=== PATIENT | male | born 1965 | race Caucasian/White ===

== ENCOUNTER 2017-02-17 08:35 | Observation (INO) | payer OTHER ==
[2017-02-17] MEDS ORDERED: Sodium Chloride 0.9% 10 ML Syringe FLUSH PRN (08:54)
[2017-02-17] MEDS ORDERED: Sodium Chloride 0.9% 1,000 ML IV STA (08:54)
[2017-02-17] MEDS ORDERED: Ondansetron 4 MG/2 ML SDV IVPUSH ONE (08:54)
[2017-02-17] MEDS ORDERED: Iopamidol 612 MG/ML 150 ML Bottle IVPUSH ONE (09:09)
[2017-02-17] MEDS ORDERED: Diatrizoate Meglumine/Diatrizoate Sodium 37% 120 ML Bottle PO ONE (09:09)
[2017-02-17] MEDS: Sodium Chloride 0.9% 10 ML Syringe FLUSH PRN ×2 (09:28→10:16)
[2017-02-17] MEDS ORDERED: HYDROmorphone 1 MG/ML Syringe IVPUSH ONE (09:29)
[2017-02-17] MEDS ORDERED: HYDROmorphone 0.5 MG/0.5 ML Syringe IVPUSH ONE (10:39)
--- NOTE | 2017-02-17 10:41 | CT ---
CT abdomen and pelvis Technique: Multiple axial sections were obtained from above the dome of the diaphragm inferiorly through the pubic symphysis. Intravenous and oral contrast was utilized. Findings: Appendix is enlarged. Inflammatory change is seen around the tip of the appendix. Findings are felt compatible with appendicitis. Mild dependent atelectasis is incidentally noted posteriorly within both lung bases. Liver shows no focal parenchymal abnormality. Gallbladder shows no calcified gallstones. Spleen appears within normal limits. Adrenal glands show no nodule. Kidneys show symmetric contrast enhancement without hydronephrosis or mass. Pancreas appears within normal limits. Aorta shows no aneurysmal dilatation. Mild atherosclerotic change is noted within the aorta and iliac vessels. No pelvic mass or adenopathy is seen. Small fat-containing left inguinal hernia is identified. No bowel dilatation is seen. Bone window settings were reviewed which shows minimal degenerative change within the spine. Small fat-containing umbilical hernia is seen. Impression: 1. Findings compatible with appendicitis. 2. Other incidental findings as described above. Diagnostic code #5
[2017-02-17] MEDS ORDERED: cefOXitin 2 GM in Sodium Chloride 0.9% 100 ML IV ONE (10:50)
[2017-02-17] MEDS ORDERED: Lactated Ringers 1,000 ML IV SCH (11:00)
[2017-02-17] MEDS ORDERED: cefOXitin 2 GM in Premix Bag 1 BAG IV ONE (11:15)
[2017-02-17] MEDS ORDERED: Lidocaine 1% with EPINEPHrine 1:100,000 20 ML MDV ONE (11:21)
[2017-02-17] MEDS ORDERED: Bupivacaine 0.5%/EPINEPHrine 1:200,000 50 ML MDV ONE (11:21)
--- NOTE | 2017-02-17 11:25 | PCM.HP ---
H&P History of Present Illness - General Date of Service: 02/17/17 Source of Information: Patient History Limitations: Reports: No Limitations - History of Present Illness Initial Comments - Free Text/Narative: 51-year-old male complained of constipation and bloating 7 days ago. This was followed by periumbilical pain beginning Monday. The pain was worse with activity and migrated to his right lower quadrant over the next 48 hours. It failed to improve with laxatives. He had some mild fevers and chills as well. Because of the persistent discomfort he presented to emergency room. A CT scan of his abdomen was performed and had imaging features consistent with appendicitis. I was asked to see him for consultation. Lower Abdominal Pain Score (Numeric/FACES): 2 - Related Data Allergies/Adverse Reactions: Allergies Allergy/AdvReac Type Severity Reaction Status Date / Time No Known Allergies Allergy Verified 02/17/17 08:43 Home Medications: Home Meds Indomethacin 50 mg PO Q8HR PRN #30 capsule 12/01/14 [Rx] Lisinopril 20 mg PO DAILY 12/01/14 [History] amLODIPine Besylate [Amlodipine Besylate] 10 mg PO DAILY 12/01/14 [History] oxyCODONE HCl/Acetaminophen [Percocet 5-325 mg Tablet] 1 - 2 tab PO Q6H PRN #20 tablet 12/01/14 [Rx] Past Medical History Cardiovascular History: Reports: Hypertension Musculoskeletal History: Reports: Back Pain, Chronic Social & Family History - Tobacco Use Smoking Status *Q: Current Every Day Smoker Years of Tobacco use: 20 Packs/Tins Daily: 0.5 - Alcohol Use Days Per Week of Alcohol Use: 2 Number of Drinks Per Day: 3 Total Drinks Per Week: 6 - Recreational Drug Use Recreational Drug Use: No H&P Review of Systems - Review of Systems: Review Of Systems: See Below Gastrointestinal: Reports: Abdominal Pain Exam - Exam Exam: See Below - Vital Signs Vital Signs: Last Vital Signs Temp 36.6 C 02/17/17 08:44 Pulse 92 02/17/17 08:44 Resp 18 02/17/17 08:44 BP 132/89 02/17/17 08:44 Pulse Ox 96 02/17/17 08:44 Weight: 112.491 kg - Exam General: Alert, Oriented, 4 HEENT: Conjunctiva Clear, EOMI, Hearing Intact Neck: Supple, Trachea Midline Lungs: Clear to Auscultation, Normal Respiratory Effort Cardiovascular: Regular Rate, Regular Rhythm, Normal S1, Normal S2 Abdomen: Normal Bowel Sounds, Distention, Hernia (Protuberant umbilical reducible 2 cm defect nontender), McBurney's Sign (Male) Exam: Deferred Rectal (Males) Exam: Deferred Back Exam: Full Range of Motion Extremities: Normal Inspection Skin: Warm, Dry, Intact Psychiatric: Alert, Normal Affect - Patient Data Lab Results Last 24 hrs: Laboratory Results - last 24 hr 02/17/17 02/17/17 02/17/17 Range/Units 09:10 09:10 10:35 WBC 13.71 H (4.23-9.07) K/mm3 RBC 5.09 (4.63-6.08) M/mm3 Hgb 15.3 (13.7-17.5) gm/L Hct 43.3 (40.1-51.0) % MCV 85.1 (79.0-92.2) fl MCH 30.1 (25.7-32.2) pg MCHC 35.3 (32.2-35.5) g/dl RDW Std Deviation 38.1 (35.1-43.9) fL Plt Count 240 (163-337) K/mm3 MPV 9.3 L (9.4-12.3) fl Neut % (Auto) 71.6 H (34.0-67.9) % Lymph % (Auto) 16.5 L (21.8-53.1) % Sunflower % (Auto) 10.4 (5.3-12.2) % Eos % (Auto) 1.2 (0.8-7.0) Baso % (Auto) 0.2 (0.1-1.2) % Neut # (Auto) 9.82 H (1.78-5.38) K/mm3 Lymph # (Auto) 2.26 (1.32-3.57) K/mm3 Sunflower # (Auto) 1.42 H (0.30-0.82) K/mm3 Eos # (Auto) 0.17 (0.04-0.54) K/mm3 Baso # (Auto) 0.03 (0.01-0.08) K/mm3 Sodium 134 L (136-145) mEq/L Potassium 3.7 (3.5-5.1) mEq/L Chloride 99 (98-107) mEq/L Carbon Dioxide 27 (21-32) mEq/L Anion Gap 11.7 (5-15) BUN 21 H (7-18) mg/dL Creatinine 1.1 (0.7-1.3) mg/dL Est Cr Clr Drug Dosing 90.30 mL/min Estimated GFR (MDRD) > 60 (>60) mL/min BUN/Creatinine Ratio 19.1 H (14-18) Glucose 116 H (74-106) mg/dL Calcium 8.7 (8.5-10.1) mg/dL Total Bilirubin 1.5 H (0.2-1.0) mg/dL AST 20 (15-37) U/L ALT 28 (16-63) U/L Alkaline Phosphatase 79 (46-116) U/L Total Protein 7.4 (6.4-8.2) g/dl Albumin 3.6 (3.4-5.0) g/dl Globulin 3.8 gm/dL Albumin/Globulin Ratio 1.0 (1-2) Lipase 98 (73-393) U/L Urine Color Yellow (Yellow) Urine Appearance Clear (Clear) Urine pH 6.5 (5.0-8.0) Ur Specific [place] 1.010 (1.005-1.030) Urine Protein Negative (Negative) Urine Glucose (UA) Negative (Negative) Urine Ketones Negative (Negative) Urine Occult Blood Negative (Negative) Urine Nitrite Negative (Negative) Urine Bilirubin Negative (Negative) Urine Urobilinogen 1.0 (0.2-1.0) Ur Leukocyte Esterase Negative (Negative) Urine RBC Not seen (0-5) /hpf Urine WBC Not seen (0-5) /hpf Ur Epithelial Cells Not seen (0-5) /hpf Urine Bacteria Not seen (FEW) /hpf Urine Mucus Not seen (FEW) /hpf Result Diagrams: 02/17/17 09:10 02/17/17 09:10 *Q Meaningful Use (ADM) - VTE *Q VTE Criteria *Q: - Stroke *Q Stroke Criteria *Q: - AMI *Q AMI Criteria *Q: Problem List Initiated/Reviewed/Updated: Yes Orders Last 24hrs: Active Orders 24 hr Category Date Time Status Communication Order [RC] ROUTINE Care 02/17/17 11:16 Ordered Patient to Empty Bladder [RC] ASDIRECTED Care 02/17/17 11:16 Ordered Peripheral IV Care [RC] . DIRECTED Care 02/17/17 08:55 Active Verify Patient Consent Obtain [RC] ASDIRECTED Care 02/17/17 11:16 Ordered Nothing Per Oral Diet [DIET] Diet 02/17/17 Breakfast Ordered Lactated Ringers [Ringers, Lactated] 1,000 ml Med 02/17/17 11:00 Active IV ASDIRECTED Sodium Chloride 0.9% [Saline Flush] Med 02/17/17 08:54 Active 10 ml FLUSH ASDIRECTED PRN Sodium Chloride 0.9% [Saline Flush] Med 02/17/17 09:09 Active 10 ml FLUSH ONETIME PRN cefOXitin [Mefoxin in Dextrose,Iso-Osm 2 GM/50 ML] 2 gm Med 02/17/17 11:15 Active Premix Bag 1 bag IV ONETIME ED Antiemetic Medication Reflex [OM.PC] Stat Oth 02/17/17 08:55 Ordered Peripheral IV Insertion Adult [OM.PC] Stat Oth 02/17/17 08:54 Ordered Resuscitation Status Routine Resus Stat 02/17/17 11:16 Ordered Medication Orders Lactated Ringer's (Ringers, Lactated) 1,000 mls @ 100 mls/hr IV ASDIRECTED CIARA Last Admin: 02/17/17 10:59 Dose: 100 mls/hr Cefoxitin Sodium 2 gm/ Premix 50 mls @ 100 mls/hr IV ONETIME ONE Stop: 02/17/17 11:44 Last Admin: 02/17/17 11:17 Dose: 100 mls/hr Sodium Chloride (Saline Flush) 10 ml FLUSH ASDIRECTED PRN PRN Reason: Keep Vein Open Sodium Chloride (Saline Flush) 10 ml FLUSH ONETIME PRN PRN Reason: IV FLUSH Last Admin: 02/17/17 10:16 Dose: 10 ml Admin: 02/17/17 09:28 Dose: 10 ml Assessment/Plan Comment:: imp: Delayed presentation of appendicitis. On the other hand this may be a cecal pathologic problem, etc. He has an umbilical hernia. With the pain spreading into the hypogastrium this may represent peritonitis and could require inpatient hospitalization with IV antibiotics. He has an increased risk for perioperative complications because of the late presentation. Nevertheless surgery is indicated. plan: Laparoscopic possible open appendectomy with concomitant umbilical herniorrhaphy. The benefits and risks as well as the alternatives were explained to the patient. He wants to proceed as soon as possible.
--- NOTE | 2017-02-17 11:34 | EDM.PDOC ---
ED HPI GENERAL MEDICAL PROBLEM - General Chief Complaint: Abdominal Pain Stated Complaint: CONSTIPATION Time Seen by Provider: 02/17/17 08:50 Source of Information: Reports: Patient History Limitations: Reports: No Limitations - History of Present Illness INITIAL COMMENTS - FREE TEXT/NARRATIVE: The patient presents with lower abdominal pain for about a week. The pain has come and gone but it is more constant now. He has not had a bowel movement for about 1 week. He has nausea and he has no appetite. He has chills and he checked his temp at home and it was 101. He has no dysuria. He has no chest pain or shortness of breath. He still has his appendix and gallbladder. Onset: Gradual Duration: Week(s): (1) Location: Reports: Abdomen Quality: Reports: Sharp Severity: Moderate Improves with: Reports: None Worsens with: Reports: None Associated Symptoms: Reports: Fever/Chills, Nausea/Vomiting. Denies: Chest Pain , Cough, Headaches, Shortness of Breath Lower Abdominal Pain Score (Numeric/FACES): 2 - Related Data Allergies Allergy/AdvReac Type Severity Reaction Status Date / Time No Known Allergies Allergy Verified 02/17/17 08:43 Home Meds: Home Meds Lisinopril 20 mg PO DAILY 12/01/14 [History] amLODIPine Besylate [Amlodipine Besylate] 10 mg PO DAILY 12/01/14 [History] Hydrochlorothiazide [Hydrochlorothiazide] 50 mg PO DAILY 02/17/17 [History] Hydrocodone/Acetaminophen [Hydrocodon-Acetaminophn 10-325] 1 tab PO Q4H PRN [History] Past Medical History Cardiovascular History: Reports: Hypertension Musculoskeletal History: Reports: Back Pain, Chronic Social & Family History - Tobacco Use Smoking Status *Q: Current Every Day Smoker Years of Tobacco use: 20 Packs/Tins Daily: 0.5 - Alcohol Use Days Per Week of Alcohol Use: 2 Number of Drinks Per Day: 3 Total Drinks Per Week: 6 - Recreational Drug Use Recreational Drug Use: No ED ROS GENERAL - Review of Systems Review Of Systems: See Below Constitutional: Reports: Fever, Chills HEENT: Reports: No Symptoms Respiratory: Reports: No Symptoms Cardiovascular: Reports: No Symptoms Endocrine: Reports: No Symptoms GI/Abdominal: Reports: Abdominal Pain, Nausea. Denies: Vomiting : Reports: No Symptoms Musculoskeletal: Reports: No Symptoms Skin: Reports: No Symptoms ED EXAM, GI/ABD - Physical Exam Exam: See Below Exam Limited By: No Limitations General Appearance: Alert, No Apparent Distress Ears: Normal External Exam Nose: Normal Inspection Head: Atraumatic, Normocephalic Neck: Normal Inspection Respiratory/Chest: No Respiratory Distress, Lungs Clear, Normal Breath Sounds Cardiovascular: Regular Rate, Rhythm, No Edema, No Murmur GI/Abdominal: Soft, No Organomegaly, No Mass, Tenderness (Moderate to the mid and right lower quadrant) Course - Vital Signs Last Recorded V/S: Last Vital Signs Temp 97.9 F 02/17/17 08:44 Pulse 92 02/17/17 08:44 Resp 18 02/17/17 08:44 BP 132/89 02/17/17 08:44 Pulse Ox 96 02/17/17 08:44 - Orders/Labs/Meds Orders: Active Orders 24 hr Category Date Time Status Communication Order [RC] ROUTINE Care 02/17/17 11:16 Active Patient to Empty Bladder [RC] ASDIRECTED Care 02/17/17 11:16 Active Peripheral IV Care [RC] . DIRECTED Care 02/17/17 08:55 Active Verify Patient Consent Obtain [RC] ASDIRECTED Care 02/17/17 11:16 Active Nothing Per Oral Diet [DIET] Diet 02/17/17 Breakfast Active Lactated Ringers [Ringers, Lactated] 1,000 ml Med 02/17/17 11:00 Active IV ASDIRECTED Sodium Chloride 0.9% [Saline Flush] Med 02/17/17 08:54 Active 10 ml FLUSH ASDIRECTED PRN Sodium Chloride 0.9% [Saline Flush] Med 02/17/17 09:09 Active 10 ml FLUSH ONETIME PRN cefOXitin [Mefoxin in Dextrose,Iso-Osm 2 GM/50 ML] 2 gm Med 02/17/17 11:15 Active Premix Bag 1 bag IV ONETIME ED Antiemetic Medication Reflex [OM.PC] Stat Oth 02/17/17 08:55 Ordered Peripheral IV Insertion Adult [OM.PC] Stat Oth 02/17/17 08:54 Ordered Resuscitation Status Routine Resus Stat 02/17/17 11:16 Ordered Medication Orders Lactated Ringer's (Ringers, Lactated) 1,000 mls @ 100 mls/hr IV ASDIRECTED CIARA Last Admin: 02/17/17 10:59 Dose: 100 mls/hr Cefoxitin Sodium 2 gm/ Premix 50 mls @ 100 mls/hr IV ONETIME ONE Stop: 02/17/17 11:44 Last Admin: 02/17/17 11:17 Dose: 100 mls/hr Sodium Chloride (Saline Flush) 10 ml FLUSH ASDIRECTED PRN PRN Reason: Keep Vein Open Sodium Chloride (Saline Flush) 10 ml FLUSH ONETIME PRN PRN Reason: IV FLUSH Last Admin: 02/17/17 10:16 Dose: 10 ml Admin: 02/17/17 09:28 Dose: 10 ml Labs: Laboratory Tests 02/17/17 02/17/17 02/17/17 Range/Units 09:10 09:10 10:35 WBC 13.71 H (4.23-9.07) K/mm3 RBC 5.09 (4.63-6.08) M/mm3 Hgb 15.3 (13.7-17.5) gm/L Hct 43.3 (40.1-51.0) % MCV 85.1 (79.0-92.2) fl MCH 30.1 (25.7-32.2) pg MCHC 35.3 (32.2-35.5) g/dl RDW Std Deviation 38.1 (35.1-43.9) fL Plt Count 240 (163-337) K/mm3 MPV 9.3 L (9.4-12.3) fl Neut % (Auto) 71.6 H (34.0-67.9) % Lymph % (Auto) 16.5 L (21.8-53.1) % [place] % (Auto) 10.4 (5.3-12.2) % Eos % (Auto) 1.2 (0.8-7.0) Baso % (Auto) 0.2 (0.1-1.2) % Neut # (Auto) 9.82 H (1.78-5.38) K/mm3 Lymph # (Auto) 2.26 (1.32-3.57) K/mm3 [place] # (Auto) 1.42 H (0.30-0.82) K/mm3 Eos # (Auto) 0.17 (0.04-0.54) K/mm3 Baso # (Auto) 0.03 (0.01-0.08) K/mm3 Sodium 134 L (136-145) mEq/L Potassium 3.7 (3.5-5.1) mEq/L Chloride 99 (98-107) mEq/L Carbon Dioxide 27 (21-32) mEq/L Anion Gap 11.7 (5-15) BUN 21 H (7-18) mg/dL Creatinine 1.1 (0.7-1.3) mg/dL Est Cr Clr Drug Dosing 90.30 mL/min Estimated GFR (MDRD) > 60 (>60) mL/min BUN/Creatinine Ratio 19.1 H (14-18) Glucose 116 H (74-106) mg/dL Calcium 8.7 (8.5-10.1) mg/dL Total Bilirubin 1.5 H (0.2-1.0) mg/dL AST 20 (15-37) U/L ALT 28 (16-63) U/L Alkaline Phosphatase 79 (46-116) U/L Total Protein 7.4 (6.4-8.2) g/dl Albumin 3.6 (3.4-5.0) g/dl Globulin 3.8 gm/dL Albumin/Globulin Ratio 1.0 (1-2) Lipase 98 (73-393) U/L Urine Color Yellow (Yellow) Urine Appearance Clear (Clear) Urine pH 6.5 (5.0-8.0) Ur Specific [place] 1.010 (1.005-1.030) Urine Protein Negative (Negative) Urine Glucose (UA) Negative (Negative) Urine Ketones Negative (Negative) Urine Occult Blood Negative (Negative) Urine Nitrite Negative (Negative) Urine Bilirubin Negative (Negative) Urine Urobilinogen 1.0 (0.2-1.0) Ur Leukocyte Esterase Negative (Negative) Urine RBC Not seen (0-5) /hpf Urine WBC Not seen (0-5) /hpf Ur Epithelial Cells Not seen (0-5) /hpf Urine Bacteria Not seen (FEW) /hpf Urine Mucus Not seen (FEW) /hpf Meds: Medications Generic Name Dose Route Start Last Admin Trade Name Freq PRN Reason Stop Dose Admin Lactated Ringer's 1,000 mls @ 100 mls/hr 02/17/17 11:00 02/17/17 10:59 Ringers, Lactated IV 100 mls/hr ASDIRECTED CIARA Administration Cefoxitin Sodium 2 gm/ Premix 50 mls @ 100 mls/hr 02/17/17 11:15 02/17/17 11: 17 IV 02/17/17 11:44 100 mls/hr ONETIME ONE Administration Sodium Chloride 10 ml 02/17/17 08:54 Saline Flush FLUSH ASDIRECTED PRN Keep Vein Open Sodium Chloride 10 ml 02/17/17 09:09 02/17/17 10:16 Saline Flush FLUSH 10 ml ONETIME PRN Administration IV FLUSH Discontinued Medications Generic Name Dose Route Start Last Admin Trade Name Freq PRN Reason Stop Dose Admin Diatrizoate Meglum/Diatrizoate Sod 120 ml 02/17/17 09:09 02/17/17 10:16 Gastrografin 37% PO 02/17/17 09:10 90 ml ONETIME ONE Administration Hydromorphone HCl 1 mg 02/17/17 09:29 02/17/17 09:38 Dilaudid IVPUSH 02/17/17 09:30 1 mg ONETIME ONE Administration Hydromorphone HCl 0.5 mg 02/17/17 10:39 02/17/17 10:44 Dilaudid IVPUSH 02/17/17 10:40 0.5 mg ONETIME ONE Administration Sodium Chloride 1,000 mls @ 1,000 mls/hr 02/17/17 08:54 02/17/17 09:20 Normal Saline IV 02/17/17 09:53 1,000 mls/hr .BOLUS STA Administration Cefoxitin Sodium 2 gm/ Sodium 100 mls @ 200 mls/hr 02/17/17 10:50 Chloride IV 02/17/17 11:19 ONETIME ONE Iopamidol 150 ml 02/17/17 09:09 02/17/17 10:16 Isovue-300 (61%) IVPUSH 02/17/17 09:10 125 ml ONETIME ONE Administration Ondansetron HCl 4 mg 02/17/17 08:54 02/17/17 09:22 Zofran IVPUSH 02/17/17 08:55 4 mg ONETIME ONE Administration - Re-Assessments/Exams Free Text/Narrative Re-Assessment/Exam: 02/17/17 11:35 I ordered an IV NS 1L bolus, zofran 4mg IV, labs, UA and CT of the abdomen and pelvis. 02/17/17 11:36 His WBC was elevated at 13.71. His Na was low at 134. His glucose was elevated at 116. His total bili was elevated at 1.5. His UA shows no UTI. He needed something for pain when he came back so I gave dilaudid 1mg IV. His CT shows findings compatible with appendicitis. I called Dr Wise and he came to see the patient and he will take him to the OR. I ordered mifoxin 2 grams IV. The patient needed something more for pain so I gave him more dilaudid. Departure - Departure Time of Disposition: 11:45 Disposition: Refer to Observation Condition: Fair Clinical Impression: Appendicitis Qualifiers: Appendicitis type: acute appendicitis Acute appendicitis type: other Qualified Code(s): K35.89 - Other acute appendicitis - Discharge Information Forms: ED Department Discharge - My Orders Last 24 Hours: My Active Orders 02/17/17 08:54 Sodium Chloride 0.9% [Saline Flush] 10 ml FLUSH ASDIRECTED PRN Peripheral IV Insertion Adult [OM.PC] Stat 02/17/17 08:55 Peripheral IV Care [RC] . DIRECTED ED Antiemetic Medication Reflex [OM.PC] Stat 02/17/17 09:09 Sodium Chloride 0.9% [Saline Flush] 10 ml FLUSH ONETIME PRN 02/17/17 11:00 Lactated Ringers [Ringers, Lactated] 1,000 ml IV ASDIRECTED 02/17/17 11:15 cefOXitin [Mefoxin in Dextrose,Iso-Osm 2 GM/50 ML] 2 gm Premix Bag 1 bag IV ONETIME - Assessment/Plan Last 24 Hours: My Active Orders 02/17/17 08:54 Sodium Chloride 0.9% [Saline Flush] 10 ml FLUSH ASDIRECTED PRN Peripheral IV Insertion Adult [OM.PC] Stat 02/17/17 08:55 Peripheral IV Care [RC] . DIRECTED ED Antiemetic Medication Reflex [OM.PC] Stat 02/17/17 09:09 Sodium Chloride 0.9% [Saline Flush] 10 ml FLUSH ONETIME PRN 02/17/17 11:00 Lactated Ringers [Ringers, Lactated] 1,000 ml IV ASDIRECTED 02/17/17 11:15 cefOXitin [Mefoxin in Dextrose,Iso-Osm 2 GM/50 ML] 2 gm Premix Bag 1 bag IV ONETIME
[2017-02-17] MEDS ORDERED: Propofol 200 MG/20 ML SDV ONE (11:51)
[2017-02-17] MEDS ORDERED: Midazolam 1 MG/ML 2 ML SDV ONE (11:52)
[2017-02-17] MEDS ORDERED: fentaNYL 250 MCG/5 ML SDV ONE (11:52)
[2017-02-17] MEDS ORDERED: Ondansetron 4 MG/2 ML SDV ONE (11:54)
[2017-02-17] MEDS ORDERED: Rocuronium 50 MG/5 ML Vial ONE (11:54)
[2017-02-17] MEDS ORDERED: Dexamethasone 4 MG/ML 5 ML MDV ONE (11:54)
[2017-02-17] MEDS ORDERED: Lidocaine 1% 4 ML ONE (11:54)
[2017-02-17] MEDS ORDERED: Succinylcholine/Normal Saline 100 MG/5 ML Syringe ONE (11:54)
--- NOTE | 2017-02-17 12:00 | PCM.PREANE ---
Preanesthetic Assessment - Procedure Proposed Procedure: Lap appendectomy, umbilical hernia repair - Anesthesia/Transfusion/Family Hx Anesthesia History: Prior Anesthesia Without Reaction Family History of Anesthesia Reaction: No Transfusion History: No Prior Transfusion(s) Intubation History: Unknown Additional History: Patient states he has been feeling ill the past 2 days - Review of Systems General: Chills (last night) Pulmonary: No Symptoms Cardiovascular: No Symptoms Gastrointestinal: Abdominal pain Neurological: No Symptoms Other: Reports: None - Physical Assessment NPO Status Date: 02/17/17 NPO Status Time: 10:10 (oral contrast, 02/16 1730 food) O2 Sat by Pulse Oximetry: 96 Respiratory Rate: 18 Vital Signs: Last Vital Signs Temp 36.6 C 02/17/17 08:44 Pulse 92 02/17/17 08:44 Resp 18 02/17/17 08:44 BP 132/89 02/17/17 08:44 Pulse Ox 96 02/17/17 08:44 Height: 1.88 m Weight: 112.491 kg ASA Class: 2E Mental Status: Alert & Oriented x3 Airway Class: Mallampati = 2 Dentition: Reports: Normal Dentition Thyro-Mental Finger Breadths: 3 Mouth Opening Finger Breadths: 3 ROM/Head Extension: Full Lungs: Clear to auscultation, Normal respiratory effort Cardiovascular: Regular Rate, Regular Rhythm - Lab Values: Laboratory Last Values WBC 13.71 K/mm3 (4.23-9.07) H 02/17/17 09:10 RBC 5.09 M/mm3 (4.63-6.08) 02/17/17 09:10 Hgb 15.3 gm/L (13.7-17.5) 02/17/17 09:10 Hct 43.3 % (40.1-51.0) 02/17/17 09:10 MCV 85.1 fl (79.0-92.2) 02/17/17 09:10 MCH 30.1 pg (25.7-32.2) 02/17/17 09:10 MCHC 35.3 g/dl (32.2-35.5) 02/17/17 09:10 RDW Std Deviation 38.1 fL (35.1-43.9) 02/17/17 09:10 Plt Count 240 K/mm3 (163-337) 02/17/17 09:10 MPV 9.3 fl (9.4-12.3) L 02/17/17 09:10 Neut % (Auto) 71.6 % (34.0-67.9) H 02/17/17 09:10 Lymph % (Auto) 16.5 % (21.8-53.1) L 02/17/17 09:10 [place] % (Auto) 10.4 % (5.3-12.2) 02/17/17 09:10 Eos % (Auto) 1.2 (0.8-7.0) 02/17/17 09:10 Baso % (Auto) 0.2 % (0.1-1.2) 02/17/17 09:10 Neut # (Auto) 9.82 K/mm3 (1.78-5.38) H 02/17/17 09:10 Lymph # (Auto) 2.26 K/mm3 (1.32-3.57) 02/17/17 09:10 [place] # (Auto) 1.42 K/mm3 (0.30-0.82) H 02/17/17 09:10 Eos # (Auto) 0.17 K/mm3 (0.04-0.54) 02/17/17 09:10 Baso # (Auto) 0.03 K/mm3 (0.01-0.08) 02/17/17 09:10 Sodium 134 mEq/L (136-145) L 02/17/17 09:10 Potassium 3.7 mEq/L (3.5-5.1) 02/17/17 09:10 Chloride 99 mEq/L (98-107) 02/17/17 09:10 Carbon Dioxide 27 mEq/L (21-32) 02/17/17 09:10 Anion Gap 11.7 (5-15) 02/17/17 09:10 BUN 21 mg/dL (7-18) H 02/17/17 09:10 Creatinine 1.1 mg/dL (0.7-1.3) 02/17/17 09:10 Est Cr Clr Drug Dosing 90.30 mL/min 02/17/17 09:10 Estimated GFR (MDRD) > 60 mL/min (>60) 02/17/17 09:10 BUN/Creatinine Ratio 19.1 (14-18) H 02/17/17 09:10 Glucose 116 mg/dL (74-106) H 02/17/17 09:10 Calcium 8.7 mg/dL (8.5-10.1) 02/17/17 09:10 Total Bilirubin 1.5 mg/dL (0.2-1.0) H 02/17/17 09:10 AST 20 U/L (15-37) 02/17/17 09:10 ALT 28 U/L (16-63) 02/17/17 09:10 Alkaline Phosphatase 79 U/L (46-116) 02/17/17 09:10 Total Protein 7.4 g/dl (6.4-8.2) 02/17/17 09:10 Albumin 3.6 g/dl (3.4-5.0) 02/17/17 09:10 Globulin 3.8 gm/dL 02/17/17 09:10 Albumin/Globulin Ratio 1.0 (1-2) 02/17/17 09:10 Lipase 98 U/L (73-393) 02/17/17 09:10 Urine Color Yellow (Yellow) 02/17/17 10:35 Urine Appearance Clear (Clear) 02/17/17 10:35 Urine pH 6.5 (5.0-8.0) 02/17/17 10:35 Ur Specific [place] 1.010 (1.005-1.030) 02/17/17 10:35 Urine Protein Negative (Negative) 02/17/17 10:35 Urine Glucose (UA) Negative (Negative) 02/17/17 10:35 Urine Ketones Negative (Negative) 02/17/17 10:35 Urine Occult Blood Negative (Negative) 02/17/17 10:35 Urine Nitrite Negative (Negative) 02/17/17 10:35 Urine Bilirubin Negative (Negative) 02/17/17 10:35 Urine Urobilinogen 1.0 (0.2-1.0) 02/17/17 10:35 Ur Leukocyte Esterase Negative (Negative) 02/17/17 10:35 Urine RBC Not seen /hpf (0-5) 02/17/17 10:35 Urine WBC Not seen /hpf (0-5) 02/17/17 10:35 Ur Epithelial Cells Not seen /hpf (0-5) 02/17/17 10:35 Urine Bacteria Not seen /hpf (FEW) 02/17/17 10:35 Urine Mucus Not seen /hpf (FEW) 02/17/17 10:35 - Imaging/EKG Impressions: SR 84 - Allergies Allergies/Adverse Reactions: Allergies Allergy/AdvReac Type Severity Reaction Status Date / Time No Known Allergies Allergy Verified 02/17/17 08:43 - Blood Blood Available: No Product(s) Available: None - Anesthesia Plan Pre-Op Medication Ordered: None - Acknowledgements Anesthesia Type Planned: General Anesthesia (RSI recommended, patient feeling nauseated from oral contrast) Pt an Appropriate Candidate for the Planned Anesthesia: Yes Alternatives and Risks of Anesthesia Discussed w Pt/Guardian: Yes Pt/Guardian Understands and Agrees with Anesthesia Plan: Yes PreAnesthesia Questionnaire Cardiovascular History: Reports: Hypertension Musculoskeletal History: Reports: Arthritis, Back Pain, Chronic, Gout - SUBSTANCE USE Smoking Status *Q: Current Every Day Smoker Days Per Week of Alcohol Use: 2 Number of Drinks Per Day: 3 Total Drinks Per Week: 6 Recreational Drug Use History: No - HOME MEDS Home Medications: Home Meds Lisinopril 20 mg PO DAILY 12/01/14 [History] amLODIPine Besylate [Amlodipine Besylate] 10 mg PO DAILY 12/01/14 [History] Hydrochlorothiazide [Hydrochlorothiazide] 50 mg PO DAILY 02/17/17 [History] Hydrocodone/Acetaminophen [Hydrocodon-Acetaminophn 10-325] 1 tab PO Q4H PRN [History] - CURRENT (IN HOUSE) MEDS Current Meds: Current Medications Lactated Ringer's (Ringers, Lactated) 1,000 mls @ 100 mls/hr IV ASDIRECTED [facility] Last Admin: 02/17/17 10:59 Dose: 100 mls/hr Sodium Chloride (Saline Flush) 10 ml FLUSH ASDIRECTED PRN PRN Reason: Keep Vein Open Sodium Chloride (Saline Flush) 10 ml FLUSH ONETIME PRN PRN Reason: IV FLUSH Last Admin: 02/17/17 10:16 Dose: 10 ml Discontinued Medications Bupivacaine HCl/Epinephrine Bitart (Marcaine 0.5%/Epinephrine 1:200,000) Confirm Administered Dose 50 ml .ROUTE .STK-MED ONE Stop: 02/17/17 11:22 Dexamethasone (Dexamethasone) Confirm Administered Dose 20 mg .ROUTE .STK-MED ONE Stop: 02/17/17 11:55 Diatrizoate Meglum/Diatrizoate Sod (Gastrografin 37%) 120 ml PO ONETIME ONE Stop: 02/17/17 09:10 Last Admin: 02/17/17 10:16 Dose: 90 ml Fentanyl (Sublimaze) Confirm Administered Dose 250 mcg .ROUTE .STK-MED ONE Stop: 02/17/17 11:53 Hydromorphone HCl (Dilaudid) 1 mg IVPUSH ONETIME ONE Stop: 02/17/17 09:30 Last Admin: 02/17/17 09:38 Dose: 1 mg Hydromorphone HCl (Dilaudid) 0.5 mg IVPUSH ONETIME ONE Stop: 02/17/17 10:40 Last Admin: 02/17/17 10:44 Dose: 0.5 mg Sodium Chloride (Normal Saline) 1,000 mls @ 1,000 mls/hr IV .BOLUS STA Stop: 02/17/17 09:53 Last Admin: 02/17/17 09:20 Dose: 1,000 mls/hr Cefoxitin Sodium 2 gm/ Sodium (Chloride) 100 mls @ 200 mls/hr IV ONETIME ONE Stop: 02/17/17 11:19 Last Admin: 02/17/17 11:54 Dose: Not Given Cefoxitin Sodium 2 gm/ Premix 50 mls @ 100 mls/hr IV ONETIME ONE Stop: 02/17/17 11:44 Last Admin: 02/17/17 11:17 Dose: 100 mls/hr Lidocaine HCl (Xylocaine-Mpf 1%) Confirm Administered Dose 4 mls @ as directed .ROUTE .STK-MED ONE Stop: 02/17/17 11:55 Iopamidol (Isovue-300 (61%)) 150 ml IVPUSH ONETIME ONE Stop: 02/17/17 09:10 Last Admin: 02/17/17 10:16 Dose: 125 ml Lidocaine/Epinephrine (Xylocaine 1% With Epinephrine 1:100,000) Confirm Administered Dose 20 ml .ROUTE .STK-MED ONE Stop: 02/17/17 11:22 Midazolam HCl (Versed 1 Mg/Ml) Confirm Administered Dose 2 mg .ROUTE .STK-MED ONE Stop: 02/17/17 11:53 Ondansetron HCl (Zofran) 4 mg IVPUSH ONETIME ONE Stop: 02/17/17 08:55 Last Admin: 02/17/17 09:22 Dose: 4 mg Ondansetron HCl (Zofran) Confirm Administered Dose 4 mg .ROUTE .STK-MED ONE Stop: 02/17/17 11:55 Propofol (Diprivan 20 Ml) Confirm Administered Dose 200 mg .ROUTE .STK-MED ONE Stop: 02/17/17 11:52 Rocuronium [place] (Zemuron) Confirm Administered Dose 50 mg .ROUTE .STK-MED ONE Stop: 02/17/17 11:55 Succinylcholine Chloride (Succinylcholine In Ns Pf) Confirm Administered Dose 100 mg .ROUTE .STK-MED ONE Stop: 02/17/17 11:55
[2017-02-17] MEDS ORDERED: HYDROmorphone 1 MG/ML Syringe ONE (12:51)
[2017-02-17] MEDS ORDERED: Ondansetron 4 MG/2 ML SDV IVPUSH PRN (13:10)
--- NOTE | 2017-02-17 13:20 | PCM.OPNOTE ---
- General Post-Op/Procedure Note Date of Surgery/Procedure: 02/17/17 Operative Procedure(s): 1. Laparoscopic appendectomy. 2. Umbilical hernia repair Findings: Acutely inflamed appendix with gangrenous appendiceal tip with exudate suggesting microperforation, no gross peritonitis no fecal contamination. 2 cm umbilical defect herniating preperitoneal fat. Pre Op Diagnosis: 1. Appendicitis with delayed presentation. 2. Umbilical hernia Post-Op Diagnosis: Appendicitis with gangrenous tip of the appendix and nonreducible umbilical hernia Anesthesia Technique: General ET tube, Local Primary Surgeon: Kel Wise Pathology: Appendix EBL in mLs: 0 Complications: None Condition: Good Free Text/Narrative:: After adequate general endotracheal tube anesthesia was obtained the patient's abdomen was prepped and draped in usual fashion for the procedures. Local analgesia was given in the supraumbilical region followed by a supraumbilical incision with a 15 blade. The umbilical hernia was from surrounding subcutaneous tissues down to the fascia and away from the overlying skin. I excised the sac at the level of the fascial defect then opened the sac and reduced fat. The defect was about 2 cm in length. Once this was done I inserted a 12 mm camera port through the hernia defect. CO2 pneumoperitoneum was obtained. A 5 mm working port was placed in the suprapubic region and in left lower quadrant. Exploration revealed the findings above. The appendix was grasped and then I made a window in the appendiceal mesentery with scissors then fired a stapler across the base of the appendix. 3 additional loads were fired across the appendiceal mesentery which was lengthy and thickened. The area was hemostatic. There was no obvious bowel injury. I irrigated out the right lower quadrant and pelvis with saline solution. The abdomen was decannulated under direct vision with no bleeding from the port sites. The 2 cm defect was closed with 6 interrupted 0 Ethibond sutures. The supraumbilical skin was attached to the midline with a 3-0 Vicryl. The subcutaneous layer in this area was closed with Vicryl as well. The skin was closed with a running 4 subcuticular Vicryl. Steri- Strips and gauze were used for the dressing. There were no procedural complications. Photographs were taken for the patient and for the record. He was taken to the recovery area extubated in stable condition.
--- NOTE | 2017-02-17 13:23 | PCM.POSTAN ---
POST ANESTHESIA ASSESSMENT - MENTAL STATUS Mental Status: alert, oriented - VITAL SIGNS Pulse Rate: 96 SaO2: 95 Resp Rate: 14 Blood Pressure: 143/86 Temperature: 36.4 C - RESPIRATORY Respiratory Status: respiratory rate WNL, airway patent, O2 saturation stable, supplemental oxygen - CARDIOVASCULAR CV Status: pulse rate WNL, blood pressure stable - GASTROINTESTINAL GI Status: no symptoms - PAIN Pain Score: 2 - POST OP HYDRATION Hydration Status: adequate & stable - OBSERVATIONS Free Text/Narrative:: no anesthesia complications noted
[2017-02-17] MEDS: fentaNYL 100 MCG/2 ML SDV IVPUSH PRN ×3 (13:40→14:02)
--- NOTE | 2017-02-17 13:43 | PCM48HPAN ---
Post Anesthesia Note - EVALUATION WITHIN 48HRS OF ANESTHETIC Vital Signs in Normal Range: Yes Patient Participated in Evaluation: Yes Respiratory Function Stable: Yes Airway Patent: Yes Cardiovascular Function Stable: Yes Hydration Status Stable: Yes Pain Control Satisfactory: Yes Nausea and Vomiting Control Satisfactory: Yes Mental Status Recovered: Yes
[2017-02-17] MEDS: Lactated Ringers 1,000 ML IV SCH ×2 (16:26→18:07)
[2017-02-17] MEDS: cefOXitin 2 GM in Premix Bag 1 BAG IV SCH ×2 (16:26→20:29)
[2017-02-17] MEDS: Acetaminophen/oxyCODONE 325-5 MG Tab PO PRN ×2 (17:29→21:29)
[2017-02-17] MEDS: HYDROmorphone 0.5 MG/0.5 ML Syringe IVPUSH PRN (19:33)
[2017-02-17] MEDS ORDERED: Magnesium Hydroxide 400 MG/5 ML Susp 30 ML Cup PO ONE (20:30)
[2017-02-18] MEDS: cefOXitin 2 GM in Premix Bag 1 BAG IV SCH ×4 (02:19→21:01)
[2017-02-18] MEDS: Acetaminophen/oxyCODONE 325-5 MG Tab PO PRN ×4 (02:20→19:47)
[2017-02-18] MEDS: Lactated Ringers 1,000 ML IV SCH (02:23)
[2017-02-18] MEDS ORDERED: Magnesium Citrate Solution 296 ML Bottle PO ONE (08:50)
[2017-02-18] MEDS: amLODIPine 10 MG Tab PO SCH (08:50)
[2017-02-18] MEDS: Hydrochlorothiazide 25 MG Tab PO SCH (08:50)
[2017-02-18] MEDS: Lisinopril 20 MG Tab PO SCH (08:52)
--- NOTE | 2017-02-18 08:54 | PCM.SURGPN ---
- General Info Date of Service: 02/18/17 POD#: 1 Functional Status: Reports: pain controlled, tolerating diet, ambulating, urinating, incentive spirometry - Review of Systems General: Reports: Other (Notes distention and incisional discomfort only mostly at the umbilicus) - Patient Data Vitals - most recent: Last Vital Signs Temp 37.1 C 02/18/17 03:00 Pulse 59 L 02/18/17 04:35 Resp 16 02/18/17 03:00 BP 103/62 02/18/17 04:35 Pulse Ox 98 02/18/17 04:35 Weight - most recent: 114.532 kg I&O - last 24 hours: Intake & Output 02/17/17 02/18/17 02/18/17 22:59 06:59 14:59 Intake Total 997 5499 Output Total 800 2925 Balance 197 2574 Med Orders - Current: Current Medications Amlodipine Besylate (Norvasc) 10 mg PO DAILY [facility] Hydrochlorothiazide (Hydrochlorothiazide) 50 mg PO DAILY [facility] Hydromorphone HCl (Dilaudid) 0.5 mg IVPUSH Q1H PRN PRN Reason: Pain (severe 7-10) Last Admin: 02/17/17 19:33 Dose: 0.5 mg Cefoxitin Sodium 2 gm/ Premix 50 mls @ 100 mls/hr IV Q6H [facility] Last Admin: 02/18/17 02:19 Dose: 100 mls/hr Lisinopril (Prinivil) 20 mg PO DAILY [facility] Magnesium Citrate (Citrate Of Magnesia) 0 ml PO ONETIME ONE Stop: 02/18/17 08:51 Non-Formulary Medication (Meloxicam) 15 mg PO DAILY [facility] Ondansetron HCl (Zofran) 4 mg IVPUSH Q6H PRN PRN Reason: Nausea/Vomiting Oxycodone/Acetaminophen (Percocet 325-5 Mg) 2 tab PO Q4H PRN PRN Reason: Pain (moderate 4-6) Last Admin: 02/18/17 02:20 Dose: 2 tab Sodium Chloride (Saline Flush) 10 ml FLUSH ASDIRECTED PRN PRN Reason: Keep Vein Open Sodium Chloride (Saline Flush) 10 ml FLUSH ONETIME PRN PRN Reason: IV FLUSH Last Admin: 02/17/17 10:16 Dose: 10 ml Discontinued Medications Bupivacaine HCl/Epinephrine Bitart (Marcaine 0.5%/Epinephrine 1:200,000) Confirm Administered Dose 50 ml .ROUTE .STK-MED ONE Stop: 02/17/17 11:22 Last Admin: 02/17/17 12:15 Dose: 10 ml Dexamethasone (Dexamethasone) Confirm Administered Dose 20 mg .ROUTE .STK-MED ONE Stop: 02/17/17 11:55 Diatrizoate Meglum/Diatrizoate Sod (Gastrografin 37%) 120 ml PO ONETIME ONE Stop: 02/17/17 09:10 Last Admin: 02/17/17 10:16 Dose: 90 ml Fentanyl (Sublimaze) Confirm Administered Dose 250 mcg .ROUTE .STK-MED ONE Stop: 02/17/17 11:53 Fentanyl (Sublimaze) 50 mcg IVPUSH Q5M PRN PRN Reason: PAIN Stop: 02/17/17 18:00 Last Admin: 02/17/17 14:02 Dose: 50 mcg Hydromorphone HCl (Dilaudid) 1 mg IVPUSH ONETIME ONE Stop: 02/17/17 09:30 Last Admin: 02/17/17 09:38 Dose: 1 mg Hydromorphone HCl (Dilaudid) 0.5 mg IVPUSH ONETIME ONE Stop: 02/17/17 10:40 Last Admin: 02/17/17 10:44 Dose: 0.5 mg Hydromorphone HCl (Dilaudid) Confirm Administered Dose 1 mg .ROUTE .STK-MED ONE Stop: 02/17/17 12:52 Sodium Chloride (Normal Saline) 1,000 mls @ 1,000 mls/hr IV .BOLUS STA Stop: 02/17/17 09:53 Last Admin: 02/17/17 09:20 Dose: 1,000 mls/hr Lactated Ringer's (Ringers, Lactated) 1,000 mls @ 100 mls/hr IV ASDIRECTED [facility] Last Admin: 02/17/17 10:59 Dose: 100 mls/hr Cefoxitin Sodium 2 gm/ Sodium (Chloride) 100 mls @ 200 mls/hr IV ONETIME ONE Stop: 02/17/17 11:19 Last Admin: 02/17/17 11:54 Dose: Not Given Cefoxitin Sodium 2 gm/ Premix 50 mls @ 100 mls/hr IV ONETIME ONE Stop: 02/17/17 11:44 Last Admin: 02/17/17 11:17 Dose: 100 mls/hr Lidocaine HCl (Xylocaine-Mpf 1%) Confirm Administered Dose 4 mls @ as directed .ROUTE .STK-MED ONE Stop: 02/17/17 11:55 Lactated Ringer's (Ringers, Lactated) 1,000 mls @ 125 mls/hr IV ASDIRECTED [facility] Last Admin: 02/18/17 02:23 Dose: 125 mls/hr Iopamidol (Isovue-300 (61%)) 150 ml IVPUSH ONETIME ONE Stop: 02/17/17 09:10 Last Admin: 02/17/17 10:16 Dose: 125 ml Lidocaine/Epinephrine (Xylocaine 1% With Epinephrine 1:100,000) Confirm Administered Dose 20 ml .ROUTE .STK-MED ONE Stop: 02/17/17 11:22 Last Admin: 02/17/17 12:15 Dose: 10 ml Magnesium Hydroxide (Milk Of Magnesia) 30 ml PO ONETIME ONE Stop: 02/17/17 20:31 Last Admin: 02/17/17 20:29 Dose: 30 ml Midazolam HCl (Versed 1 Mg/Ml) Confirm Administered Dose 2 mg .ROUTE .STK-MED ONE Stop: 02/17/17 11:53 Ondansetron HCl (Zofran) 4 mg IVPUSH ONETIME ONE Stop: 02/17/17 08:55 Last Admin: 02/17/17 09:22 Dose: 4 mg Ondansetron HCl (Zofran) Confirm Administered Dose 4 mg .ROUTE .STK-MED ONE Stop: 02/17/17 11:55 Propofol (Diprivan 20 Ml) Confirm Administered Dose 200 mg .ROUTE .STK-MED ONE Stop: 02/17/17 11:52 Rocuronium [place] (Zemuron) Confirm Administered Dose 50 mg .ROUTE .STK-MED ONE Stop: 02/17/17 11:55 Succinylcholine Chloride (Succinylcholine In Ns Pf) Confirm Administered Dose 100 mg .ROUTE .STK-MED ONE Stop: 02/17/17 11:55 - Exam Wound/Incisions: dressing dry and intact Abdomen: distension - Problem List Review Problem List Initiated/Reviewed/Updated: Yes - My Orders Last 24 Hours: Active Orders 24 hr Category Date Time Status Antiembolic Devices [RC] PER UNIT ROUTINE Care 02/18/17 05:26 Active Regular Diet [DIET] Diet 02/18/17 Lunch Ordered Bisacodyl [Dulcolax] Med 02/18/17 09:00 Ordered 10 mg RECTAL DAILY Magnesium Citrate [Citrate of Magnesia] Med 02/18/17 08:50 Once See Dose Instructions PO ONETIME ONE Meloxicam Med 02/18/17 09:00 Ordered 15 mg PO DAILY Discontinue Saline Lock [Peripheral IV Discontinue] [OM Oth 02/18/17 08:51 Ordered .PC] Routine Sequential Compression Device [OM.PC] Routine Oth 02/18/17 05:26 Ordered Medication Orders Amlodipine Besylate (Norvasc) 10 mg PO DAILY [facility] Hydrochlorothiazide (Hydrochlorothiazide) 50 mg PO DAILY [facility] Hydromorphone HCl (Dilaudid) 0.5 mg IVPUSH Q1H PRN PRN Reason: Pain (severe 7-10) Last Admin: 02/17/17 19:33 Dose: 0.5 mg Cefoxitin Sodium 2 gm/ Premix 50 mls @ 100 mls/hr IV Q6H [facility] Last Admin: 02/18/17 02:19 Dose: 100 mls/hr Infusion: 02/17/17 20:59 Dose: 100 mls/hr Admin: 02/17/17 20:29 Dose: 100 mls/hr Infusion: 02/17/17 16:56 Dose: 100 mls/hr Admin: 02/17/17 16:26 Dose: 100 mls/hr Lisinopril (Prinivil) 20 mg PO DAILY [facility] Magnesium Citrate (Citrate Of Magnesia) 0 ml PO ONETIME ONE Stop: 02/18/17 08:51 Non-Formulary Medication (Meloxicam) 15 mg PO DAILY [facility] Ondansetron HCl (Zofran) 4 mg IVPUSH Q6H PRN PRN Reason: Nausea/Vomiting Oxycodone/Acetaminophen (Percocet 325-5 Mg) 2 tab PO Q4H PRN PRN Reason: Pain (moderate 4-6) Last Admin: 02/18/17 02:20 Dose: 2 tab Admin: 02/17/17 21:29 Dose: 2 tab Admin: 02/17/17 17:29 Dose: 2 tab Sodium Chloride (Saline Flush) 10 ml FLUSH ASDIRECTED PRN PRN Reason: Keep Vein Open Sodium Chloride (Saline Flush) 10 ml FLUSH ONETIME PRN PRN Reason: IV FLUSH Last Admin: 02/17/17 10:16 Dose: 10 ml Admin: 02/17/17 09:28 Dose: 10 ml - Assessment Assessment (Free Text/Narrative):: imp: Some passage of gas. plan: Doing well, and so will advance diet. CBC in a.m.
[2017-02-18] MEDS ORDERED: Non-Formulary Medication 1 Each (Meloxicam 15 MG) PO SCH (09:00)
[2017-02-18] MEDS: Bisacodyl 10 MG Supp RECTAL SCH (12:44)
--- NOTE | 2017-02-18 16:37 | PCM48HPAN ---
Post Anesthesia Note - EVALUATION WITHIN 48HRS OF ANESTHETIC Vital Signs in Normal Range: Yes Patient Participated in Evaluation: Yes Respiratory Function Stable: Yes Airway Patent: Yes Cardiovascular Function Stable: Yes Hydration Status Stable: Yes Pain Control Satisfactory: Yes Nausea and Vomiting Control Satisfactory: Yes Mental Status Recovered: Yes (up and around walking in halls)
[2017-02-19] MEDS: cefOXitin 2 GM in Premix Bag 1 BAG IV SCH ×4 (04:25→21:03)
[2017-02-19] MEDS: HYDROmorphone 0.5 MG/0.5 ML Syringe IVPUSH PRN (04:38)
--- NOTE | 2017-02-19 07:18 | PCM.SURGPN ---
- General Info Date of Service: 02/19/17 Functional Status: Reports: pain controlled, tolerating diet, ambulating, urinating, other (Complain of saline lock slight pain) - Review of Systems Gastrointestinal: Reports: Flatus, Other (Bowel movement) - Patient Data Vitals - most recent: Last Vital Signs Temp 36.3 C 02/19/17 03:00 Pulse 71 02/19/17 03:00 Resp 16 02/19/17 03:00 BP 155/87 H 02/19/17 03:00 Pulse Ox 97 02/19/17 03:00 Weight - most recent: 113.081 kg I&O - last 24 hours: Intake & Output 02/18/17 02/19/17 02/19/17 22:59 06:59 14:59 Intake Total 4670 2400 Output Total 1600 1600 Balance 3070 800 Lab Results last 24 hrs: Laboratory Results - last 24 hr 02/18/17 02/19/17 Range/Units 12:24 06:00 WBC 16.51 H 9.55 H (4.23-9.07) K/mm3 RBC 5.02 4.42 L (4.63-6.08) M/mm3 Hgb 15.0 13.2 L (13.7-17.5) gm/L Hct 43.2 38.8 L (40.1-51.0) % MCV 86.1 87.8 (79.0-92.2) fl MCH 29.9 29.9 (25.7-32.2) pg MCHC 34.7 34.0 (32.2-35.5) g/dl RDW Std Deviation 38.7 39.1 (35.1-43.9) fL Plt Count 292 204 (163-337) K/mm3 MPV 9.6 9.8 (9.4-12.3) fl Neut % (Auto) 79.0 H 61.3 (34.0-67.9) % Lymph % (Auto) 12.1 L 27.4 (21.8-53.1) % [place] % (Auto) 8.1 9.2 (5.3-12.2) % Eos % (Auto) 0.4 L 1.8 (0.8-7.0) Baso % (Auto) 0.1 0.1 (0.1-1.2) % Neut # (Auto) 13.06 H 5.85 H (1.78-5.38) K/mm3 Lymph # (Auto) 1.99 2.62 (1.32-3.57) K/mm3 [place] # (Auto) 1.33 H 0.88 H (0.30-0.82) K/mm3 Eos # (Auto) 0.06 0.17 (0.04-0.54) K/mm3 Baso # (Auto) 0.02 0.01 (0.01-0.08) K/mm3 Med Orders - Current: Current Medications Amlodipine Besylate (Norvasc) 10 mg PO DAILY [facility] Last Admin: 02/18/17 08:50 Dose: 10 mg Bisacodyl (Dulcolax) 10 mg RECTAL DAILY [facility] Last Admin: 02/18/17 12:44 Dose: Not Given Hydrochlorothiazide (Hydrochlorothiazide) 50 mg PO DAILY [facility] Last Admin: 02/18/17 08:50 Dose: 50 mg Hydromorphone HCl (Dilaudid) 0.5 mg IVPUSH Q1H PRN PRN Reason: Pain (severe 7-10) Last Admin: 02/19/17 04:38 Dose: 0.5 mg Cefoxitin Sodium 2 gm/ Premix 50 mls @ 100 mls/hr IV Q6H [facility] Last Admin: 02/19/17 04:25 Dose: 100 mls/hr Lisinopril (Prinivil) 20 mg PO DAILY [facility] Last Admin: 02/18/17 08:52 Dose: 20 mg Ondansetron HCl (Zofran) 4 mg IVPUSH Q6H PRN PRN Reason: Nausea/Vomiting Oxycodone/Acetaminophen (Percocet 325-5 Mg) 2 tab PO Q4H PRN PRN Reason: Pain (moderate 4-6) Last Admin: 02/18/17 19:47 Dose: 2 tab Sodium Chloride (Saline Flush) 10 ml FLUSH ASDIRECTED PRN PRN Reason: Keep Vein Open Sodium Chloride (Saline Flush) 10 ml FLUSH ONETIME PRN PRN Reason: IV FLUSH Last Admin: 02/17/17 10:16 Dose: 10 ml Discontinued Medications Bupivacaine HCl/Epinephrine Bitart (Marcaine 0.5%/Epinephrine 1:200,000) Confirm Administered Dose 50 ml .ROUTE .STK-MED ONE Stop: 02/17/17 11:22 Last Admin: 02/17/17 12:15 Dose: 10 ml Dexamethasone (Dexamethasone) Confirm Administered Dose 20 mg .ROUTE .STK-MED ONE Stop: 02/17/17 11:55 Diatrizoate Meglum/Diatrizoate Sod (Gastrografin 37%) 120 ml PO ONETIME ONE Stop: 02/17/17 09:10 Last Admin: 02/17/17 10:16 Dose: 90 ml Fentanyl (Sublimaze) Confirm Administered Dose 250 mcg .ROUTE .STK-MED ONE Stop: 02/17/17 11:53 Fentanyl (Sublimaze) 50 mcg IVPUSH Q5M PRN PRN Reason: PAIN Stop: 02/17/17 18:00 Last Admin: 02/17/17 14:02 Dose: 50 mcg Hydromorphone HCl (Dilaudid) 1 mg IVPUSH ONETIME ONE Stop: 02/17/17 09:30 Last Admin: 02/17/17 09:38 Dose: 1 mg Hydromorphone HCl (Dilaudid) 0.5 mg IVPUSH ONETIME ONE Stop: 02/17/17 10:40 Last Admin: 02/17/17 10:44 Dose: 0.5 mg Hydromorphone HCl (Dilaudid) Confirm Administered Dose 1 mg .ROUTE .STK-MED ONE Stop: 02/17/17 12:52 Sodium Chloride (Normal Saline) 1,000 mls @ 1,000 mls/hr IV .BOLUS STA Stop: 02/17/17 09:53 Last Admin: 02/17/17 09:20 Dose: 1,000 mls/hr Lactated Ringer's (Ringers, Lactated) 1,000 mls @ 100 mls/hr IV ASDIRECTED [facility] Last Admin: 02/17/17 10:59 Dose: 100 mls/hr Cefoxitin Sodium 2 gm/ Sodium (Chloride) 100 mls @ 200 mls/hr IV ONETIME ONE Stop: 02/17/17 11:19 Last Admin: 02/17/17 11:54 Dose: Not Given Cefoxitin Sodium 2 gm/ Premix 50 mls @ 100 mls/hr IV ONETIME ONE Stop: 02/17/17 11:44 Last Admin: 02/17/17 11:17 Dose: 100 mls/hr Lidocaine HCl (Xylocaine-Mpf 1%) Confirm Administered Dose 4 mls @ as directed .ROUTE .STK-MED ONE Stop: 02/17/17 11:55 Lactated Ringer's (Ringers, Lactated) 1,000 mls @ 125 mls/hr IV ASDIRECTED [facility] Last Admin: 02/18/17 02:23 Dose: 125 mls/hr Iopamidol (Isovue-300 (61%)) 150 ml IVPUSH ONETIME ONE Stop: 02/17/17 09:10 Last Admin: 02/17/17 10:16 Dose: 125 ml Lidocaine/Epinephrine (Xylocaine 1% With Epinephrine 1:100,000) Confirm Administered Dose 20 ml .ROUTE .STK-MED ONE Stop: 02/17/17 11:22 Last Admin: 02/17/17 12:15 Dose: 10 ml Magnesium Citrate (Citrate Of Magnesia) 296 ml PO ONETIME ONE Stop: 02/18/17 08:51 Last Admin: 02/18/17 09:02 Dose: 296 ml Magnesium Hydroxide (Milk Of Magnesia) 30 ml PO ONETIME ONE Stop: 02/17/17 20:31 Last Admin: 02/17/17 20:29 Dose: 30 ml Midazolam HCl (Versed 1 Mg/Ml) Confirm Administered Dose 2 mg .ROUTE .STK-MED ONE Stop: 02/17/17 11:53 Non-Formulary Medication (Meloxicam) 15 mg PO DAILY [facility] Last Admin: 02/18/17 13:42 Dose: Not Given Ondansetron HCl (Zofran) 4 mg IVPUSH ONETIME ONE Stop: 02/17/17 08:55 Last Admin: 02/17/17 09:22 Dose: 4 mg Ondansetron HCl (Zofran) Confirm Administered Dose 4 mg .ROUTE .STK-MED ONE Stop: 02/17/17 11:55 Propofol (Diprivan 20 Ml) Confirm Administered Dose 200 mg .ROUTE .STK-MED ONE Stop: 02/17/17 11:52 Rocuronium [place] (Zemuron) Confirm Administered Dose 50 mg .ROUTE .STK-MED ONE Stop: 02/17/17 11:55 Succinylcholine Chloride (Succinylcholine In Ns Pf) Confirm Administered Dose 100 mg .ROUTE .STK-MED ONE Stop: 02/17/17 11:55 - Exam Wound/Incisions: dressing dry and intact Abdomen: soft, no tenderness Extremities: other (Right saline lock site pain) - Problem List Review Problem List Initiated/Reviewed/Updated: Yes - My Orders Last 24 Hours: Active Orders 24 hr Category Date Time Status Communication Order [RC] ROUTINE Care 02/19/17 07:13 Ordered Communication Order [RC] ROUTINE Care 02/19/17 07:14 Ordered May Shower [RC] ASDIRECTED Care 02/19/17 07:13 Ordered Regular Diet [DIET] Diet 02/18/17 Lunch Active CBC WITH AUTO DIFF [HEME] Routine Lab 02/20/17 07:14 Ordered Bisacodyl [Dulcolax] Med 02/18/17 09:00 Active 10 mg RECTAL DAILY Discontinue Saline Lock [Peripheral IV Discontinue] [OM Oth 02/18/17 08:51 Ordered .PC] Routine Medication Orders Amlodipine Besylate (Norvasc) 10 mg PO DAILY [facility] Last Admin: 02/18/17 08:50 Dose: 10 mg Bisacodyl (Dulcolax) 10 mg RECTAL DAILY [facility] Last Admin: 02/18/17 12:44 Dose: Not Given Hydrochlorothiazide (Hydrochlorothiazide) 50 mg PO DAILY [facility] Last Admin: 02/18/17 08:50 Dose: 50 mg Hydromorphone HCl (Dilaudid) 0.5 mg IVPUSH Q1H PRN PRN Reason: Pain (severe 7-10) Last Admin: 02/19/17 04:38 Dose: 0.5 mg Admin: 02/17/17 19:33 Dose: 0.5 mg Cefoxitin Sodium 2 gm/ Premix 50 mls @ 100 mls/hr IV Q6H [facility] Last Admin: 02/19/17 04:25 Dose: 100 mls/hr Infusion: 02/18/17 21:31 Dose: 100 mls/hr Admin: 02/18/17 21:01 Dose: 100 mls/hr Infusion: 02/18/17 15:37 Dose: 100 mls/hr Admin: 02/18/17 15:07 Dose: 100 mls/hr Infusion: 02/18/17 09:19 Dose: 100 mls/hr Admin: 02/18/17 08:49 Dose: 100 mls/hr Infusion: 02/18/17 02:49 Dose: 100 mls/hr Admin: 02/18/17 02:19 Dose: 100 mls/hr Infusion: 02/17/17 20:59 Dose: 100 mls/hr Admin: 02/17/17 20:29 Dose: 100 mls/hr Infusion: 02/17/17 16:56 Dose: 100 mls/hr Admin: 02/17/17 16:26 Dose: 100 mls/hr Lisinopril (Prinivil) 20 mg PO DAILY [facility] Last Admin: 02/18/17 08:52 Dose: 20 mg Ondansetron HCl (Zofran) 4 mg IVPUSH Q6H PRN PRN Reason: Nausea/Vomiting Oxycodone/Acetaminophen (Percocet 325-5 Mg) 2 tab PO Q4H PRN PRN Reason: Pain (moderate 4-6) Last Admin: 02/18/17 19:47 Dose: 2 tab Admin: 02/18/17 13:49 Dose: 2 tab Admin: 02/18/17 09:03 Dose: 2 tab Admin: 02/18/17 02:20 Dose: 2 tab Admin: 02/17/17 21:29 Dose: 2 tab Admin: 02/17/17 17:29 Dose: 2 tab Sodium Chloride (Saline Flush) 10 ml FLUSH ASDIRECTED PRN PRN Reason: Keep Vein Open Sodium Chloride (Saline Flush) 10 ml FLUSH ONETIME PRN PRN Reason: IV FLUSH Last Admin: 02/17/17 10:16 Dose: 10 ml Admin: 02/17/17 09:28 Dose: 10 ml - Assessment Assessment (Free Text/Narrative):: Impression: His white blood cell count was 16,000 yesterday. Today it is 9000. I will cover him with one more day of intravenous antibiotics and will discharge him tomorrow. Plan: CBC in a.m. hopefully followed by discharge.
[2017-02-19] MEDS: Hydrochlorothiazide 25 MG Tab PO SCH (09:59)
[2017-02-19] MEDS: Lisinopril 20 MG Tab PO SCH (10:00)
[2017-02-19] MEDS: Bisacodyl 10 MG Supp RECTAL SCH (10:04)
[2017-02-19] MEDS: amLODIPine 10 MG Tab PO SCH (10:04)
[2017-02-19] MEDS: Acetaminophen/oxyCODONE 325-5 MG Tab PO PRN (10:09)
[2017-02-19] MEDS ORDERED: Acetaminophen/HYDROcodone 325-10 MG Tab PO PRN (18:17)
[2017-02-20] MEDS: cefOXitin 2 GM in Premix Bag 1 BAG IV SCH ×2 (03:06→08:07)
[2017-02-20 08:00] VITALS: BP 137/91
[2017-02-20] MEDS ORDERED: Pneumococcal Polyvalent-23 Vaccine 0.5 ML SDV SUBCUT ONE (08:00)
[2017-02-20] MEDS ORDERED: Diphtheria,Pertussis(Acell),Tetanus Vaccine 0.5 ML SDV IM ONE (08:00)
[2017-02-20] MEDS: Lisinopril 20 MG Tab PO SCH (08:04)
[2017-02-20] MEDS: Hydrochlorothiazide 25 MG Tab PO SCH (08:05)
[2017-02-20] MEDS: amLODIPine 10 MG Tab PO SCH (08:05)
[2017-02-20] MEDS: Bisacodyl 10 MG Supp RECTAL SCH (08:08)
--- NOTE | 2017-02-20 10:08 | PCM.SURGPN ---
- General Info Date of Service: 02/20/17 Functional Status: Reports: pain controlled, tolerating diet, ambulating, urinating, incentive spirometry - Patient Data Vitals - most recent: Last Vital Signs Temp 36.8 C 02/20/17 07:54 Pulse 83 02/20/17 07:55 Resp 16 02/20/17 03:00 BP 137/91 H 02/20/17 08:05 Pulse Ox 93 L 02/20/17 07:55 Weight - most recent: 110.949 kg I&O - last 24 hours: Intake & Output 02/19/17 02/20/17 02/20/17 22:59 06:59 14:59 Intake Total 1790 1700 Output Total 600 3000 Balance 1190 -1300 Lab Results last 24 hrs: Laboratory Results - last 24 hr 02/20/17 Range/Units 05:11 WBC 8.66 (4.23-9.07) K/mm3 RBC 4.87 (4.63-6.08) M/mm3 Hgb 14.7 (13.7-17.5) gm/L Hct 42.3 (40.1-51.0) % MCV 86.9 (79.0-92.2) fl MCH 30.2 (25.7-32.2) pg MCHC 34.8 (32.2-35.5) g/dl RDW Std Deviation 38.8 (35.1-43.9) fL Plt Count 244 (163-337) K/mm3 MPV 9.4 (9.4-12.3) fl Neut % (Auto) 62.0 (34.0-67.9) % Lymph % (Auto) 24.2 (21.8-53.1) % [place] % (Auto) 9.8 (5.3-12.2) % Eos % (Auto) 3.6 (0.8-7.0) Baso % (Auto) 0.2 (0.1-1.2) % Neut # (Auto) 5.36 (1.78-5.38) K/mm3 Lymph # (Auto) 2.10 (1.32-3.57) K/mm3 [place] # (Auto) 0.85 H (0.30-0.82) K/mm3 Eos # (Auto) 0.31 (0.04-0.54) K/mm3 Baso # (Auto) 0.02 (0.01-0.08) K/mm3 Med Orders - Current: Current Medications Hydrocodone Bitart/Acetaminophen ([place] 325-10 Mg) 1 tab PO Q4H PRN PRN Reason: Pain Last Admin: 02/19/17 21:04 Dose: 1 tab Amlodipine Besylate (Norvasc) 10 mg PO DAILY [facility] Last Admin: 02/20/17 08:05 Dose: 10 mg Bisacodyl (Dulcolax) 10 mg RECTAL DAILY [facility] Last Admin: 02/20/17 08:08 Dose: Not Given Hydrochlorothiazide (Hydrochlorothiazide) 50 mg PO DAILY [facility] Last Admin: 02/20/17 08:05 Dose: 50 mg Hydromorphone HCl (Dilaudid) 0.5 mg IVPUSH Q1H PRN PRN Reason: Pain (severe 7-10) Last Admin: 02/19/17 04:38 Dose: 0.5 mg Cefoxitin Sodium 2 gm/ Premix 50 mls @ 100 mls/hr IV Q6H [facility] Last Admin: 02/20/17 08:07 Dose: 100 mls/hr Lisinopril (Prinivil) 20 mg PO DAILY [facility] Last Admin: 02/20/17 08:04 Dose: 20 mg Ondansetron HCl (Zofran) 4 mg IVPUSH Q6H PRN PRN Reason: Nausea/Vomiting Sodium Chloride (Saline Flush) 10 ml FLUSH ASDIRECTED PRN PRN Reason: Keep Vein Open Sodium Chloride (Saline Flush) 10 ml FLUSH ONETIME PRN PRN Reason: IV FLUSH Last Admin: 02/17/17 10:16 Dose: 10 ml Discontinued Medications Bupivacaine HCl/Epinephrine Bitart (Marcaine 0.5%/Epinephrine 1:200,000) Confirm Administered Dose 50 ml .ROUTE .STK-MED ONE Stop: 02/17/17 11:22 Last Admin: 02/17/17 12:15 Dose: 10 ml Dexamethasone (Dexamethasone) Confirm Administered Dose 20 mg .ROUTE .STK-MED ONE Stop: 02/17/17 11:55 Diatrizoate Meglum/Diatrizoate Sod (Gastrografin 37%) 120 ml PO ONETIME ONE Stop: 02/17/17 09:10 Last Admin: 02/17/17 10:16 Dose: 90 ml Diphtheria/Tetanus/Acell Pertussis (Adacel) 0.5 ml IM .ONCE ONE Stop: 02/20/17 08:01 Fentanyl (Sublimaze) Confirm Administered Dose 250 mcg .ROUTE .STK-MED ONE Stop: 02/17/17 11:53 Fentanyl (Sublimaze) 50 mcg IVPUSH Q5M PRN PRN Reason: PAIN Stop: 02/17/17 18:00 Last Admin: 02/17/17 14:02 Dose: 50 mcg Hydromorphone HCl (Dilaudid) 1 mg IVPUSH ONETIME ONE Stop: 02/17/17 09:30 Last Admin: 02/17/17 09:38 Dose: 1 mg Hydromorphone HCl (Dilaudid) 0.5 mg IVPUSH ONETIME ONE Stop: 02/17/17 10:40 Last Admin: 02/17/17 10:44 Dose: 0.5 mg Hydromorphone HCl (Dilaudid) Confirm Administered Dose 1 mg .ROUTE .STK-MED ONE Stop: 02/17/17 12:52 Sodium Chloride (Normal Saline) 1,000 mls @ 1,000 mls/hr IV .BOLUS STA Stop: 02/17/17 09:53 Last Admin: 02/17/17 09:20 Dose: 1,000 mls/hr Lactated Ringer's (Ringers, Lactated) 1,000 mls @ 100 mls/hr IV ASDIRECTED [facility] Last Admin: 02/17/17 10:59 Dose: 100 mls/hr Cefoxitin Sodium 2 gm/ Sodium (Chloride) 100 mls @ 200 mls/hr IV ONETIME ONE Stop: 02/17/17 11:19 Last Admin: 02/17/17 11:54 Dose: Not Given Cefoxitin Sodium 2 gm/ Premix 50 mls @ 100 mls/hr IV ONETIME ONE Stop: 02/17/17 11:44 Last Admin: 02/17/17 11:17 Dose: 100 mls/hr Lidocaine HCl (Xylocaine-Mpf 1%) Confirm Administered Dose 4 mls @ as directed .ROUTE .STK-MED ONE Stop: 02/17/17 11:55 Lactated Ringer's (Ringers, Lactated) 1,000 mls @ 125 mls/hr IV ASDIRECTED [facility] Last Admin: 02/18/17 02:23 Dose: 125 mls/hr Iopamidol (Isovue-300 (61%)) 150 ml IVPUSH ONETIME ONE Stop: 02/17/17 09:10 Last Admin: 02/17/17 10:16 Dose: 125 ml Lidocaine/Epinephrine (Xylocaine 1% With Epinephrine 1:100,000) Confirm Administered Dose 20 ml .ROUTE .STK-MED ONE Stop: 02/17/17 11:22 Last Admin: 02/17/17 12:15 Dose: 10 ml Magnesium Citrate (Citrate Of Magnesia) 296 ml PO ONETIME ONE Stop: 02/18/17 08:51 Last Admin: 02/18/17 09:02 Dose: 296 ml Magnesium Hydroxide (Milk Of Magnesia) 30 ml PO ONETIME ONE Stop: 02/17/17 20:31 Last Admin: 02/17/17 20:29 Dose: 30 ml Midazolam HCl (Versed 1 Mg/Ml) Confirm Administered Dose 2 mg .ROUTE .STK-MED ONE Stop: 02/17/17 11:53 Non-Formulary Medication (Meloxicam) 15 mg PO DAILY [facility] Last Admin: 02/18/17 13:42 Dose: Not Given Ondansetron HCl (Zofran) 4 mg IVPUSH ONETIME ONE Stop: 02/17/17 08:55 Last Admin: 02/17/17 09:22 Dose: 4 mg Ondansetron HCl (Zofran) Confirm Administered Dose 4 mg .ROUTE .STK-MED ONE Stop: 02/17/17 11:55 Oxycodone/Acetaminophen (Percocet 325-5 Mg) 2 tab PO Q4H PRN PRN Reason: Pain (moderate 4-6) Last Admin: 02/19/17 10:09 Dose: 2 tab Pneumococcal Polyvalent Vaccine (Pneumovax 23) 0.5 ml SUBCUT .ONCE ONE Stop: 02/20/17 08:01 Propofol (Diprivan 20 Ml) Confirm Administered Dose 200 mg .ROUTE .STK-MED ONE Stop: 02/17/17 11:52 Rocuronium [place] (Zemuron) Confirm Administered Dose 50 mg .ROUTE .STK-MED ONE Stop: 02/17/17 11:55 Succinylcholine Chloride (Succinylcholine In Ns Pf) Confirm Administered Dose 100 mg .ROUTE .STK-MED ONE Stop: 02/17/17 11:55 - Exam Wound/Incisions: healing well, dressing dry and intact (Steri-Strips in place) - Problem List & Annotations (1) Appendicitis SNOMED Code(s): 18509973 Code(s): K37 - UNSPECIFIED APPENDICITIS Status: Resolved Current Visit: Yes Qualifiers: Appendicitis type: acute appendicitis Acute appendicitis type: with localized peritonitis Qualified Code(s): K35.3 - Acute appendicitis with localized peritonitis - Problem List Review Problem List Initiated/Reviewed/Updated: Yes - My Orders Last 24 Hours: Active Orders 24 hr Category Date Time Status Vaccines to be Administered [RC] PER UNIT ROUTINE Care 02/20/17 08:01 Active Acetaminophen/HYDROcodone [[place] 325-10 MG] Med 02/19/17 18:17 Active 1 tab PO Q4H PRN Medication Orders Hydrocodone Bitart/Acetaminophen ([place] 325-10 Mg) 1 tab PO Q4H PRN PRN Reason: Pain Last Admin: 02/19/17 21:04 Dose: 1 tab Amlodipine Besylate (Norvasc) 10 mg PO DAILY [facility] Last Admin: 02/20/17 08:05 Dose: 10 mg Admin: 02/19/17 10:04 Dose: 10 mg Admin: 02/18/17 08:50 Dose: 10 mg Bisacodyl (Dulcolax) 10 mg RECTAL DAILY [facility] Last Admin: 02/20/17 08:08 Dose: Not Given Admin: 02/19/17 10:04 Dose: Not Given Admin: 02/18/17 12:44 Dose: Not Given Hydrochlorothiazide (Hydrochlorothiazide) 50 mg PO DAILY [facility] Last Admin: 02/20/17 08:05 Dose: 50 mg Admin: 02/19/17 09:59 Dose: 50 mg Admin: 02/18/17 08:50 Dose: 50 mg Hydromorphone HCl (Dilaudid) 0.5 mg IVPUSH Q1H PRN PRN Reason: Pain (severe 7-10) Last Admin: 02/19/17 04:38 Dose: 0.5 mg Admin: 02/17/17 19:33 Dose: 0.5 mg Cefoxitin Sodium 2 gm/ Premix 50 mls @ 100 mls/hr IV Q6H [facility] Last Admin: 02/20/17 08:07 Dose: 100 mls/hr Infusion: 02/20/17 03:36 Dose: 100 mls/hr Admin: 02/20/17 03:06 Dose: 100 mls/hr Infusion: 02/19/17 21:33 Dose: 100 mls/hr Admin: 02/19/17 21:03 Dose: 100 mls/hr Infusion: 02/19/17 16:10 Dose: 100 mls/hr Admin: 02/19/17 15:40 Dose: 100 mls/hr Infusion: 02/19/17 11:30 Dose: 100 mls/hr Admin: 02/19/17 11:00 Dose: 100 mls/hr Infusion: 02/19/17 04:55 Dose: 100 mls/hr Admin: 02/19/17 04:25 Dose: 100 mls/hr Infusion: 02/18/17 21:31 Dose: 100 mls/hr Admin: 02/18/17 21:01 Dose: 100 mls/hr Infusion: 02/18/17 15:37 Dose: 100 mls/hr Admin: 02/18/17 15:07 Dose: 100 mls/hr Infusion: 02/18/17 09:19 Dose: 100 mls/hr Admin: 02/18/17 08:49 Dose: 100 mls/hr Infusion: 02/18/17 02:49 Dose: 100 mls/hr Admin: 02/18/17 02:19 Dose: 100 mls/hr Infusion: 02/17/17 20:59 Dose: 100 mls/hr Admin: 02/17/17 20:29 Dose: 100 mls/hr Infusion: 02/17/17 16:56 Dose: 100 mls/hr Admin: 02/17/17 16:26 Dose: 100 mls/hr Lisinopril (Prinivil) 20 mg PO DAILY [facility] Last Admin: 02/20/17 08:04 Dose: 20 mg Admin: 02/19/17 10:00 Dose: 20 mg Admin: 02/18/17 08:52 Dose: 20 mg Ondansetron HCl (Zofran) 4 mg IVPUSH Q6H PRN PRN Reason: Nausea/Vomiting Sodium Chloride (Saline Flush) 10 ml FLUSH ASDIRECTED PRN PRN Reason: Keep Vein Open Sodium Chloride (Saline Flush) 10 ml FLUSH ONETIME PRN PRN Reason: IV FLUSH Last Admin: 02/17/17 10:16 Dose: 10 ml Admin: 02/17/17 09:28 Dose: 10 ml - Assessment Assessment (Free Text/Narrative):: Ready for discharge - Plan Plan (Free Text/Narrative):: Discharged today
--- NOTE | 2017-02-20 10:11 | PCM.DCSUM1 ---
Discharge Summary - Hospital Course Free Text/Narrative:: Uncomplicated. Patient received IV antibiotics given the gangrenous nature of the tip of the appendix with local peritonitis. He had no fever but he did manifest a leukocytosis which rapidly resolved on IV antibiotics. He satisfied all discharge criteria and was discharged. - Discharge Data Discharge Date: 02/20/17 Discharge Disposition: Home, Self-Care 01 Condition: Good - Discharge Diagnosis/Problem(s) (1) Appendicitis SNOMED Code(s): 99147048 ICD Code: K37 - UNSPECIFIED APPENDICITIS Status: Resolved Current Visit: Yes Qualifiers: Appendicitis type: acute appendicitis Acute appendicitis type: with localized peritonitis Qualified Code(s): K35.3 - Acute appendicitis with localized peritonitis - Patient Summary/Data Operative Procedure(s) Performed: 1. Laparoscopic appendectomy. 2. Umbilical hernia repair - Patient Instructions Diet: Usual Diet as Tolerated Activity: As Tolerated, Rest and Relax Today Driving: May Drive Today Showering/Bathing: May Shower Wound/Incision Care: Keep Operative Site/Wound Site Clean and Dry Notify Provider of: Fever, Increased Pain, Nausea and/or Vomiting - Discharge Plan Home Medications: Home Meds Lisinopril 40 mg PO DAILY 12/01/14 [History] amLODIPine Besylate [Amlodipine Besylate] 10 mg PO DAILY 12/01/14 [History] Hydrochlorothiazide 50 mg PO DAILY 02/17/17 [History] Hydrocodone/Acetaminophen [Hydrocodon-Acetaminophn 10-325] 1 tab PO Q4H PRN [History] Meloxicam 15 mg PO DAILY 02/17/17 [History] Patient Handouts: Smoking Cessation, Tips for Success, [id number], Laparoscopic Appendectomy, Adult, Care After, [id number] Forms: ED Department Discharge Referrals: Lilliam Mac DO [Primary Care Provider] - Kel Wise MD [Physician] - 02/28/17 (Routine postoperative evaluation.) - Discharge Summary/Plan Comment DC Time >30 min.: No Discharge Summary/Plan Comment: The discharged instructions were verbally relayed to the patient. I asked him to call me at any time between now and his office visit if there are any questions or concerns. I will also give him a prescription for Bactrim DS for 1 week with Flagyl for 1 week. - Patient Data Vitals - Most Recent: Last Vital Signs Temp 36.8 C 02/20/17 07:54 Pulse 83 02/20/17 07:55 Resp 16 02/20/17 03:00 BP 137/91 H 02/20/17 08:05 Pulse Ox 93 L 02/20/17 07:55 Weight - Most Recent: 110.949 kg I&O - Last 24 hours: Intake & Output 02/19/17 02/20/17 02/20/17 22:59 06:59 14:59 Intake Total 1790 1700 Output Total 600 3000 Balance 1190 -1300 Lab Results - Last 24 hrs: Laboratory Results - last 24 hr 02/20/17 Range/Units 05:11 WBC 8.66 (4.23-9.07) K/mm3 RBC 4.87 (4.63-6.08) M/mm3 Hgb 14.7 (13.7-17.5) gm/L Hct 42.3 (40.1-51.0) % MCV 86.9 (79.0-92.2) fl MCH 30.2 (25.7-32.2) pg MCHC 34.8 (32.2-35.5) g/dl RDW Std Deviation 38.8 (35.1-43.9) fL Plt Count 244 (163-337) K/mm3 MPV 9.4 (9.4-12.3) fl Neut % (Auto) 62.0 (34.0-67.9) % Lymph % (Auto) 24.2 (21.8-53.1) % Hood % (Auto) 9.8 (5.3-12.2) % Eos % (Auto) 3.6 (0.8-7.0) Baso % (Auto) 0.2 (0.1-1.2) % Neut # (Auto) 5.36 (1.78-5.38) K/mm3 Lymph # (Auto) 2.10 (1.32-3.57) K/mm3 Hood # (Auto) 0.85 H (0.30-0.82) K/mm3 Eos # (Auto) 0.31 (0.04-0.54) K/mm3 Baso # (Auto) 0.02 (0.01-0.08) K/mm3 Med Orders - Current: Current Medications Hydrocodone Bitart/Acetaminophen ([place] 325-10 Mg) 1 tab PO Q4H PRN PRN Reason: Pain Last Admin: 02/19/17 21:04 Dose: 1 tab Amlodipine Besylate (Norvasc) 10 mg PO DAILY [facility] Last Admin: 02/20/17 08:05 Dose: 10 mg Bisacodyl (Dulcolax) 10 mg RECTAL DAILY [facility] Last Admin: 02/20/17 08:08 Dose: Not Given Hydrochlorothiazide (Hydrochlorothiazide) 50 mg PO DAILY [facility] Last Admin: 02/20/17 08:05 Dose: 50 mg Hydromorphone HCl (Dilaudid) 0.5 mg IVPUSH Q1H PRN PRN Reason: Pain (severe 7-10) Last Admin: 02/19/17 04:38 Dose: 0.5 mg Cefoxitin Sodium 2 gm/ Premix 50 mls @ 100 mls/hr IV Q6H [facility] Last Admin: 02/20/17 08:07 Dose: 100 mls/hr Lisinopril (Prinivil) 20 mg PO DAILY [facility] Last Admin: 02/20/17 08:04 Dose: 20 mg Ondansetron HCl (Zofran) 4 mg IVPUSH Q6H PRN PRN Reason: Nausea/Vomiting Sodium Chloride (Saline Flush) 10 ml FLUSH ASDIRECTED PRN PRN Reason: Keep Vein Open Sodium Chloride (Saline Flush) 10 ml FLUSH ONETIME PRN PRN Reason: IV FLUSH Last Admin: 02/17/17 10:16 Dose: 10 ml Discontinued Medications Bupivacaine HCl/Epinephrine Bitart (Marcaine 0.5%/Epinephrine 1:200,000) Confirm Administered Dose 50 ml .ROUTE .STK-MED ONE Stop: 02/17/17 11:22 Last Admin: 02/17/17 12:15 Dose: 10 ml Dexamethasone (Dexamethasone) Confirm Administered Dose 20 mg .ROUTE .STK-MED ONE Stop: 02/17/17 11:55 Diatrizoate Meglum/Diatrizoate Sod (Gastrografin 37%) 120 ml PO ONETIME ONE Stop: 02/17/17 09:10 Last Admin: 02/17/17 10:16 Dose: 90 ml Diphtheria/Tetanus/Acell Pertussis (Adacel) 0.5 ml IM .ONCE ONE Stop: 02/20/17 08:01 Fentanyl (Sublimaze) Confirm Administered Dose 250 mcg .ROUTE .STK-MED ONE Stop: 02/17/17 11:53 Fentanyl (Sublimaze) 50 mcg IVPUSH Q5M PRN PRN Reason: PAIN Stop: 02/17/17 18:00 Last Admin: 02/17/17 14:02 Dose: 50 mcg Hydromorphone HCl (Dilaudid) 1 mg IVPUSH ONETIME ONE Stop: 02/17/17 09:30 Last Admin: 02/17/17 09:38 Dose: 1 mg Hydromorphone HCl (Dilaudid) 0.5 mg IVPUSH ONETIME ONE Stop: 02/17/17 10:40 Last Admin: 02/17/17 10:44 Dose: 0.5 mg Hydromorphone HCl (Dilaudid) Confirm Administered Dose 1 mg .ROUTE .STK-MED ONE Stop: 02/17/17 12:52 Sodium Chloride (Normal Saline) 1,000 mls @ 1,000 mls/hr IV .BOLUS STA Stop: 02/17/17 09:53 Last Admin: 02/17/17 09:20 Dose: 1,000 mls/hr Lactated Ringer's (Ringers, Lactated) 1,000 mls @ 100 mls/hr IV ASDIRECTED [facility] Last Admin: 02/17/17 10:59 Dose: 100 mls/hr Cefoxitin Sodium 2 gm/ Sodium (Chloride) 100 mls @ 200 mls/hr IV ONETIME ONE Stop: 02/17/17 11:19 Last Admin: 02/17/17 11:54 Dose: Not Given Cefoxitin Sodium 2 gm/ Premix 50 mls @ 100 mls/hr IV ONETIME ONE Stop: 02/17/17 11:44 Last Admin: 02/17/17 11:17 Dose: 100 mls/hr Lidocaine HCl (Xylocaine-Mpf 1%) Confirm Administered Dose 4 mls @ as directed .ROUTE .STK-MED ONE Stop: 02/17/17 11:55 Lactated Ringer's (Ringers, Lactated) 1,000 mls @ 125 mls/hr IV ASDIRECTED [facility] Last Admin: 02/18/17 02:23 Dose: 125 mls/hr Iopamidol (Isovue-300 (61%)) 150 ml IVPUSH ONETIME ONE Stop: 02/17/17 09:10 Last Admin: 02/17/17 10:16 Dose: 125 ml Lidocaine/Epinephrine (Xylocaine 1% With Epinephrine 1:100,000) Confirm Administered Dose 20 ml .ROUTE .STK-MED ONE Stop: 02/17/17 11:22 Last Admin: 02/17/17 12:15 Dose: 10 ml Magnesium Citrate (Citrate Of Magnesia) 296 ml PO ONETIME ONE Stop: 02/18/17 08:51 Last Admin: 02/18/17 09:02 Dose: 296 ml Magnesium Hydroxide (Milk Of Magnesia) 30 ml PO ONETIME ONE Stop: 02/17/17 20:31 Last Admin: 02/17/17 20:29 Dose: 30 ml Midazolam HCl (Versed 1 Mg/Ml) Confirm Administered Dose 2 mg .ROUTE .STK-MED ONE Stop: 02/17/17 11:53 Non-Formulary Medication (Meloxicam) 15 mg PO DAILY [facility] Last Admin: 02/18/17 13:42 Dose: Not Given Ondansetron HCl (Zofran) 4 mg IVPUSH ONETIME ONE Stop: 02/17/17 08:55 Last Admin: 02/17/17 09:22 Dose: 4 mg Ondansetron HCl (Zofran) Confirm Administered Dose 4 mg .ROUTE .STK-MED ONE Stop: 02/17/17 11:55 Oxycodone/Acetaminophen (Percocet 325-5 Mg) 2 tab PO Q4H PRN PRN Reason: Pain (moderate 4-6) Last Admin: 02/19/17 10:09 Dose: 2 tab Pneumococcal Polyvalent Vaccine (Pneumovax 23) 0.5 ml SUBCUT .ONCE ONE Stop: 02/20/17 08:01 Propofol (Diprivan 20 Ml) Confirm Administered Dose 200 mg .ROUTE .STK-MED ONE Stop: 02/17/17 11:52 Rocuronium [place] (Zemuron) Confirm Administered Dose 50 mg .ROUTE .STK-MED ONE Stop: 02/17/17 11:55 Succinylcholine Chloride (Succinylcholine In Ns Pf) Confirm Administered Dose 100 mg .ROUTE .STK-MED ONE Stop: 02/17/17 11:55 *Q Meaningful Use (DIS) - VTE *Q VTE Criteria *Q: - Stroke *Q Stroke Criteria *Q: - AMI *Q AMI Criteria *Q:
== END 2017-02-20 11:30 | disposition home or self-care (01) ==
LOC: JD.ED 08:35 → JD.SDS 11:31 → JD.MS 15:35
PROVIDERS: ADMIT Surgery; ATTEND Surgery
PROC: 0DTJ4ZZ Resection of Appendix, Percutaneous Endoscopic Approach (ICD-10-PCS; principal; 2017-02-17)
PROC: 0WQF4ZZ Repair Abdominal Wall, Percutaneous Endoscopic Approach (ICD-10-PCS; 2017-02-17)
DX: K35.3 Acute appendicitis with localized peritonitis (principal); K42.9 Umbilical hernia without obstruction or gangrene; I10 Essential (primary) hypertension; M19.90 Unspecified osteoarthritis, unspecified site; M10.9 Gout, unspecified; G89.29 Other chronic pain; M54.9 Dorsalgia, unspecified; F17.210 Nicotine dependence, cigarettes, uncomplicated; Z79.899 Other long term (current) drug therapy
CPT/HCPCS: 36415; 44970; 49652; 74177; 80053; 81001; 83690; 85025; 88304; 90715; 93005; 96361; 96365; 96366; 96375; 96376; 99285; A9270; G0009; G0378; J0694; J1100; J1170; J2250; J2405; J3010; J7040; J7050; J7120; Q9963; Q9967; 00840; 90732; J0330; J2704

== ENCOUNTER 2021-02-24 09:22 | Emergency (ER) | payer OTHER ==
[2021-02-24] MEDS ORDERED: Sodium Chloride 0.9% 10 ML Syringe FLUSH PRN (09:34)
[2021-02-24] MEDS ORDERED: Aspirin 81 MG Tab.Chew PO ONE (09:34)
--- NOTE | 2021-02-24 10:25 | CR ---
Chest: Portable view of the chest was obtained. Comparison: No prior chest imaging is available. Heart size and mediastinum are normal. Minimal atelectasis is noted within the left base. Lungs otherwise are clear. Bony structures show nothing acute. Impression: 1. Mild left basilar atelectasis. 2. Nothing acute is appreciated on portable chest x-ray. Diagnostic code #2
--- NOTE | 2021-02-24 11:51 | EDM.PDOC ---
ED HPI GENERAL MEDICAL PROBLEM - General Chief Complaint: Chest Pain Stated Complaint: CHEST PAIN Time Seen by Provider: 02/24/21 09:29 Source of Information: Reports: Patient History Limitations: Reports: No Limitations - History of Present Illness INITIAL COMMENTS - FREE TEXT/NARRATIVE: The patient presents with chest pain. He says he had 3 episodes since last night at about 10pm when he was in bed. They don't last long. He has no shortness of breath. He has no fever, chills, cough, abdominal pain, nausea or vomiting. He smokes daily. He has a history of hypertension. Onset: Sudden Duration: Day(s): (last night) Location: Reports: Chest Quality: Reports: Sharp Severity: Moderate Improves with: Reports: None Worsens with: Reports: None Associated Symptoms: Reports: Chest Pain. Denies: Cough, Fever/Chills, Headaches, Nausea/Vomiting, Shortness of Breath Middle Chest Pain Score (Numeric/FACES): 8 - Related Data Allergies Allergy/AdvReac Type Severity Reaction Status Date / Time No Known Allergies Allergy Verified 02/24/21 09:32 Home Meds: Home Meds Lisinopril 40 mg PO DAILY 12/01/14 [History] amLODIPine Besylate [Amlodipine Besylate] 10 mg PO DAILY 12/01/14 [History] Hydrochlorothiazide 25 mg PO DAILY 02/17/17 [History] Famotidine 20 mg PO DAILY 02/24/21 [History] Metoprolol Succinate 25 mg PO DAILY 02/24/21 [History] Rosuvastatin [Crestor] 10 mg PO DAILY 02/24/21 [History] allopurinoL [Zyloprim] 100 mg PO DAILY 02/24/21 [History] cloNIDine [Catapres] 0.1 mg PO DAILY 02/24/21 [History] Past Medical History Cardiovascular History: Reports: Hypertension Respiratory History: Reports: Sleep Apnea Other Respiratory History: Patient uses CPAP. Musculoskeletal History: Reports: Arthritis, Back Pain, Chronic, Gout Endocrine/Metabolic History: Reports: Obesity/BMI 30+ - Infectious Disease History Infectious Disease History: Reports: Chicken Pox - Past Surgical History HEENT Surgical History: Reports: Other (See Below) Other HEENT Surgeries/Procedures: Patient had cyst removed from upper right fo rehead. GI Surgical History: Reports: Appendectomy, Colonoscopy, Hernia, Abdominal Other Musculoskeletal Surgeries/Procedures:: Degenerative arthritis of lower back, spinal stenosis. Social & Family History - Family History Cardiac: Reports: Heart Murmur, Hypertension, [place] Endocrine/Metabolic: Reports: Diabetes, type II - Tobacco Use Tobacco Use Status *Q: Current Every Day Tobacco User Years of Tobacco use: 40 Packs/Tins Daily: 1 - Caffeine Use Caffeine Use: Reports: Coffee - Recreational Drug Use Recreational Drug Use: No ED ROS GENERAL - Review of Systems Review Of Systems: See Below Constitutional: Reports: No Symptoms HEENT: Reports: No Symptoms Respiratory: Reports: No Symptoms Cardiovascular: Reports: Chest Pain Endocrine: Reports: No Symptoms GI/Abdominal: Reports: No Symptoms : Reports: No Symptoms Musculoskeletal: Reports: No Symptoms ED EXAM, GENERAL - Physical Exam Exam: See Below Exam Limited By: No Limitations General Appearance: Alert, No Apparent Distress Ears: Normal External Exam Nose: Normal Inspection Head: Atraumatic, Normocephalic Neck: Normal Inspection Respiratory/Chest: No Respiratory Distress, Lungs Clear, Normal Breath Sounds Cardiovascular: Regular Rate, Rhythm, No Edema, No Murmur GI/Abdominal: Soft, Non-Tender, No Organomegaly, No Mass Back Exam: Normal Inspection Extremities: Normal Inspection #1 Interpretation EKG Date: 02/24/21 Time: 09:30 Rhythm: NSR Rate (Beats/Min): [address]: Normal P-Wave: Present QRS: Normal ST-T: Normal QT: Normal Course - Vital Signs Last Recorded V/S: Last Vital Signs Temp 98.7 F 02/24/21 09:26 Pulse 78 02/24/21 09:26 Resp 16 02/24/21 09:26 BP 146/101 H 02/24/21 09:26 Pulse Ox - Orders/Labs/Meds Orders: Active Orders 24 hr Category Date Time Status Cardiac Monitoring [RC] . DIRECTED Care 02/24/21 09:34 Active Peripheral IV Care [RC] . DIRECTED Care 02/24/21 09:35 Active Sodium Chloride 0.9% [Saline Flush] Med 02/24/21 09:34 Active 10 ml FLUSH ASDIRECTED PRN Peripheral IV Insertion Adult [OM.PC] Stat Oth 02/24/21 09:34 Ordered EKG 12 Lead [EK] Stat Ther 02/24/21 09:33 Ordered Medication Orders Sodium Chloride (Sodium Chloride 0.9% 10 Ml Syringe) 10 ml FLUSH ASDIRECTED PRN PRN Reason: Keep Vein Open Last Admin: 02/24/21 09:38 Dose: 10 ml Documented by: MALDONADO Labs: Laboratory Tests 02/24/21 02/24/21 02/24/21 Range/Units 09:30 09:30 09:30 WBC 8.85 (4.23-9.07) K/mm3 RBC 5.27 (4.63-6.08) M/mm3 Hgb 15.8 (13.7-17.5) gm/dl Hct 45.6 (40.1-51.0) % MCV 86.5 (79.0-92.2) fl MCH 30.0 (25.7-32.2) pg MCHC 34.6 (32.2-35.5) g/dl RDW Std Deviation 40.6 (35.1-43.9) fL Plt Count 289 (163-337) K/mm3 MPV 9.4 (9.4-12.3) fl Neut % (Auto) 48.4 (34.0-67.9) % Lymph % (Auto) 36.6 (21.8-53.1) % Owen % (Auto) 9.4 (5.3-12.2) % Eos % (Auto) 4.9 (0.8-7.0) Baso % (Auto) 0.5 (0.1-1.2) % Neut # (Auto) 4.29 (1.78-5.38) K/mm3 Lymph # (Auto) 3.24 (1.32-3.57) K/mm3 Owen # (Auto) 0.83 H (0.30-0.82) K/mm3 Eos # (Auto) 0.43 (0.04-0.54) K/mm3 Baso # (Auto) 0.04 (0.01-0.08) K/mm3 D-Dimer, Quantitative 0.44 (0.19-0.50) mg/L Sodium 139 (136-145) mEq/L Potassium 4.2 (3.5-5.1) mEq/L Chloride 104 (98-107) mEq/L Carbon Dioxide 24 (21-32) mEq/L Anion Gap 15.2 H (5-15) BUN 12 (7-18) mg/dL Creatinine 1.1 (0.7-1.3) mg/dL Est Cr Clr Drug Dosing 86.14 mL/min Estimated GFR (MDRD) > 60 (>60) mL/min BUN/Creatinine Ratio 10.9 L (14-18) Glucose 128 H (70-99) mg/dL Calcium 9.0 (8.5-10.1) mg/dL Total Bilirubin 0.7 (0.2-1.0) mg/dL AST 25 (15-37) U/L ALT 46 (16-63) U/L Alkaline Phosphatase 92 (46-116) U/L Troponin I < 0.017 (0.00-0.056) ng/mL Total Protein 7.2 (6.4-8.2) g/dl Albumin 3.9 (3.4-5.0) g/dl Globulin 3.3 gm/dL Albumin/Globulin Ratio 1.2 (1-2) Meds: Medications Generic Name Dose Route Start Last Admin Trade Name Freq PRN Reason Stop Dose Admin Sodium Chloride 10 ml 02/24/21 09:34 02/24/21 09:38 Sodium Chloride 0.9% 10 Ml Syringe FLUSH 10 ml ASDIRECTED PRN Administration Keep Vein Open Discontinued Medications Generic Name Dose Route Start Last Admin Trade Name Freq PRN Reason Stop Dose Admin Aspirin 324 mg 02/24/21 09:34 02/24/21 09:41 Aspirin 81 Mg Tab.Chew PO 02/24/21 09:35 324 mg ONETIME ONE Administration - Re-Assessments/Exams Free Text/Narrative Re-Assessment/Exam: 02/24/21 11:56 I ordered an IV saline lock, aspirin, EKG, CXR and labs. His EKG shows a NSR with no acute changes. His CXR looks good. His CBC and CMP look good. His troponin and D-dimer are negative. He has no pain now. I do not feel this is an [place]. I will discharge him home. Departure - Departure Time of Disposition: 12:00 Disposition: Home, Self-Care 01 Condition: Good Clinical Impression: Atypical chest pain Forms: ED Department Discharge Additional Instructions: Take your medications as prescribed. Follow up with your provider within a week. Please return if you are worse. Sepsis Event Note (ED) - Evaluation Sepsis Screening Result: No Definite Risk - Focused Exam Vital Signs: Vital Signs Temp Pulse Resp BP 02/24/21 09:26 98.7 F 78 16 146/101 H - My Orders Last 24 Hours: My Active Orders 02/24/21 09:33 EKG 12 Lead [EK] Stat 02/24/21 09:34 Cardiac Monitoring [RC] . DIRECTED Sodium Chloride 0.9% [Saline Flush] 10 ml FLUSH ASDIRECTED PRN Peripheral IV Insertion Adult [OM.PC] Stat 02/24/21 09:35 Peripheral IV Care [RC] . DIRECTED - Assessment/Plan Last 24 Hours: My Active Orders 02/24/21 09:33 EKG 12 Lead [EK] Stat 02/24/21 09:34 Cardiac Monitoring [RC] . DIRECTED Sodium Chloride 0.9% [Saline Flush] 10 ml FLUSH ASDIRECTED PRN Peripheral IV Insertion Adult [OM.PC] Stat 02/24/21 09:35 Peripheral IV Care [RC] . DIRECTED
[2021-02-24 12:15] VITALS: BP 138/80; PULSE 53
== END 2021-02-24 12:13 | disposition home or self-care (01) ==
LOC: JD.ED 09:22
DX: R07.89 Other chest pain (principal); I10 Essential (primary) hypertension; E66.9 Obesity, unspecified; Z68.37 Body mass index [BMI] 37.0-37.9, adult; Z72.0 Tobacco use; Z79.899 Other long term (current) drug therapy
CPT/HCPCS: 36415; 71045; 80053; 84484; 85025; 85379; 93005; 99285; A9270; 93010; 99284

== ENCOUNTER 2021-02-26 19:23 | Emergency (ER) | payer OTHER ==
[2021-02-26 19:36] VITALS: BP 133/83; PULSE 61
[2021-02-26] MEDS ORDERED: Nitroglycerin/D5W 25 MG/250 ML BOTTLE IV SCH ×2 (19:45→20:45)
[2021-02-26] MEDS ORDERED: Sodium Chloride 0.9% 1,000 ML IV SCH (19:45)
[2021-02-26] MEDS ORDERED: Aspirin 81 MG Tab.Chew PO ONE (19:45)
--- NOTE | 2021-02-26 19:45 | EDM.PDOC ---
ED HPI GENERAL MEDICAL PROBLEM - General Chief Complaint: Chest Pain Stated Complaint: CHEST PAINS Time Seen by Provider: 02/26/21 19:36 Source of Information: Reports: Patient History Limitations: Reports: No Limitations - History of Present Illness INITIAL COMMENTS - FREE TEXT/NARRATIVE: 55-year-old male presents to the ED for evaluation of development of persistent substernal chest pain that seem to radiate into both shoulders and made both hands and arms numb and tingly. He has had chest pains off and on for the last 3 days. Was checked out in the emergency room by Dr. Davis 2 days ago with a very thorough work-up with no positive findings. Patient states he was fine yesterday but this afternoon had mild retrosternal chest discomfort at rest. first attack was about 5-10 min . Second bout of chest pain started about 1/2 later and lasted a good 10 minutes. This past afternoon at approximately 1600 hrs. he developed sternal chest discomfort that lasted a good 10 minutes. At about 1800 hrs. he developed significant retrosternal chest pressure discomfort which he rated as 8-9 out of 10 that still remains about a 2 out of 10 at rest in the ED. This chest pressure discomfort did not radiate up into his neck or through to his back but felt it in his shoulders and numbness and tingling in his arms which may or may not have been hyperventilation. Denies cough, sputum production and fever or chills. No odynophagia. He states he was not working hard at all when the pain came on today. He still rates the pain as a 2 out of 10 [address] in bed[address] It on the way into town it was 4 out of 10. Patient is a smoker approximately 10 to 15 cigarettes daily. He does have hypertension. He has GERD but it has been well controlled with Pepcid 20 mg daily. He felt when the pain was present that burping and belching perhaps helped a little bit. He thought though that he was probably swallowing some air. He currently has no abdominal pain and no diarrhea. Onset: Today, Sudden Onset Date: 02/26/21 Onset Time: 16:00 (Worse bout of chest pressure discomfort retrosternally today was around 1600 hrs. He had one milder event this morning that lasted about 5 to 10 minutes around 2100 hrs.) Duration: Hour(s):, Constant, Improving Location: Reports: Chest (Central retrosternal chest discomfort with no radiation to the neck jaw or through to his back. Associated numbness and tingling in both upper extremities) Quality: Reports: Ache, Pressure Severity: Moderate (Worst pain was 8-9 out of 10. Currently it is 2 out of 10) Improves with: Reports: None (Certainly not made worse by walking or activity.) Worsens with: Reports: None, Other Context: Denies: Activity, Exercise, Lifting, Sick Contact, Trauma, Other Associated Symptoms: Reports: No Other Symptoms (See history of present illness), Chest Pain. 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 (see below) (Has taken no medication for the discomfort.) Mid-Sternal Chest Pain Score (Numeric/FACES): 9 - Related Data Allergies Allergy/AdvReac Type Severity Reaction Status Date / Time No Known Allergies Allergy Verified 02/26/21 19:30 Home Meds: Home Meds Lisinopril 40 mg PO DAILY 12/01/14 [History] amLODIPine Besylate [Amlodipine Besylate] 10 mg PO DAILY 12/01/14 [History] Hydrochlorothiazide 25 mg PO DAILY 02/17/17 [History] Famotidine 20 mg PO DAILY 02/24/21 [History] Metoprolol Succinate 25 mg PO DAILY 02/24/21 [History] Rosuvastatin [Crestor] 10 mg PO DAILY 02/24/21 [History] allopurinoL [Zyloprim] 100 mg PO DAILY 02/24/21 [History] cloNIDine [Catapres] 0.1 mg PO DAILY 02/24/21 [History] Past Medical History Cardiovascular History: Reports: Hypertension Respiratory History: Reports: Sleep Apnea Other Respiratory History: Patient uses CPAP. Musculoskeletal History: Reports: Arthritis, Back Pain, Chronic, Gout Endocrine/Metabolic History: Reports: Obesity/BMI 30+ - Infectious Disease History Infectious Disease History: Reports: Chicken Pox - Past Surgical History HEENT Surgical History: Reports: Other (See Below) Other HEENT Surgeries/Procedures: Patient had cyst removed from upper right forehead. GI Surgical History: Reports: Appendectomy, Colonoscopy, Hernia, Abdominal Other Musculoskeletal Surgeries/Procedures:: Degenerative arthritis of lower back, spinal stenosis. Social & Family History - Family History Cardiac: Reports: Heart Murmur, Hypertension, [place] Endocrine/Metabolic: Reports: Diabetes, type II - Caffeine Use Caffeine Use: Reports: Coffee - Living Situation & Occupation Living situation: Reports: Occupation: Employed ED ROS GENERAL - Review of Systems Review Of Systems: See Below Constitutional: Denies: Fever, Chills, Malaise, Weakness, Fatigue, Diaphoresis, Decreased Appetite, Weight Loss HEENT: Reports: No Symptoms Respiratory: Denies: Shortness of Breath, Wheezing, Pleuritic Chest Pain, Cough, Sputum, Hemoptysis Cardiovascular: Reports: Chest Pain, Blood Pressure Problem (See history of present illness), Dyspnea on Exertion (Occasion). Denies: Claudication, Edema, Lightheadedness, Orthopnea ( chronic hypertension issues well controlled) Endocrine: Reports: Fatigue GI/Abdominal: Reports: No Symptoms. Denies: Constipation, Diarrhea : Reports: Frequency, Other Musculoskeletal: Reports: Back Pain (Nocturia x1 or 2), Other (Right shoulder pain with previous surgery for rotator cuff tear) Skin: Reports: No Symptoms Neurological: Reports: No Symptoms Psychiatric: Reports: No Symptoms Hematologic/Lymphatic: Reports: No Symptoms ED EXAM, GENERAL - Physical Exam Exam: See Below Exam Limited By: No Limitations General Appearance: Alert, WD/WN, No Apparent Distress, Other (Temperature is 36.1 degrees. Heart rate 61 and sinus. Respiratory is 18. BP 1 3383. Pulse ox 96% room air) Eye Exam: Bilateral Eye: Normal Inspection, PERRL (No blepharal pallor no scleral icterus) Neck: Normal Inspection, Supple, Non-Tender, Full Range of Motion. No: Carotid Bruit, Lymphadenopathy (L), Lymphadenopathy (R) Respiratory/Chest: No Respiratory Distress, Lungs Clear, Normal Breath Sounds, No Accessory Muscle Use, Other Cardiovascular: Normal Peripheral Pulses (No chest pain on examination), Regular Rate, Rhythm, No Edema, No Gallop, No Murmur, No Rub Peripheral Pulses: 2+: Posterior Tibial (L), Posterior Tibial (R), Dorsalis Pedis (L), Dorsalis Pedis (R), 3+: Carotid (L), Carotid (R) GI/Abdominal: Soft, Non-Tender, No Organomegaly, No Mass, Pelvis Stable, Abnormal Bowel Sounds (Bowel sounds are diffusely hyperactive in all upper quadrants and in fact are heard up in his lower retrosternal chest.), Other (Moderate obesity. Negative Chand sign no pain on firm palpation in the epigastrium.) Rectal (Males) Exam: Normal Exam Back Exam: Normal Inspection, Full Range of Motion. No: CVA Tenderness (L), CVA Tenderness (R) Extremities: Normal Inspection, Normal Range of Motion, Non-Tender, No Pedal Edema Neurological: Alert, Oriented, CN II-XII Intact, Normal Cognition, Normal Gait Psychiatric: Normal Affect, Normal Mood Skin Exam: Warm, Dry, Intact, Normal Color, No Rash #1 Interpretation EKG Date: 02/26/21 Time: 19:31 Rhythm: NSR Rate (Beats/Min): 65 Jennings: Normal P-Wave: Enlarged (Consider mild left atrial hypertrophy) QRS: Normal ST-T: Normal QT: Normal EKG Interpretation Comments: Essentially normal ECG with no signs of ischemia #2 Interpretation EKG Date: 02/26/21 Time: 21:43 Rhythm: NSR Rate (Beats/Min): 61 Jennings: Normal P-Wave: Enlarged QRS: Other (Letter left atrial hypertrophy very minimal Q waves present in leads II, III and aVF consider developing inferior wall myocardial infarction) ST-T: Other (Nonspecific T wave flattening aVL and V1) QT: Normal EKG Interpretation Comments: ECG minimally changed from ECG #1 done 2 hours prior. Course - Vital Signs Last Recorded V/S: Last Vital Signs Temp 36.1 C 02/26/21 19:31 Pulse 61 02/26/21 19:31 Resp 18 02/26/21 19:31 BP 133/83 02/26/21 19:31 Pulse Ox 96 02/26/21 19:31 - Orders/Labs/Meds Orders: Active Orders 24 hr Category Date Time Status EKG 12 Lead [EKG Documentation Completion] [RC] ROUTINE Care 02/26/21 19:31 Active Abdomen 1V Flat [CR] Stat Exams 02/26/21 19:50 Taken Chest 1V Frontal [CR] Stat Exams 02/26/21 19:46 Taken CORONAVIRUS COVID-19 NELSY [MOLEC] Stat Lab 02/26/21 22:56 Ordered URIC ACID, URINE Stat Lab 02/26/21 19:52 Ordered Heparin Sodium/D5W [Heparin 25,000 Units in D5W 500 ML] Med 02/26/21 22:45 Active 25,000 units in 500 ml IV TITRATE Nitroglycerin/D5W [Nitroglycerin 25 MG/D5W 250 ML] Med 02/26/21 20:45 Active 25 mg in 250 ml IV TITRATE Sodium Chloride 0.9% [Normal Saline] 1,000 ml Med 02/26/21 19:45 Active IV ASDIRECTED Medication Orders Sodium Chloride (Normal Saline) 1,000 mls @ 125 mls/hr IV ASDIRECTED CIARA Last Admin: 02/26/21 19:53 Dose: 125 mls/hr Documented by: WILLIAM Nitroglycerin/Dextrose (Nitroglycerin 25 Mg/D5w 250 Ml) 25 mg in 250 mls @ 6 mls/hr IV TITRATE CIARA Last Infusion: 02/26/21 22:30 Dose: 15 mcg/min, 9 mls/hr Documented by: Admin: 02/26/21 20:45 Dose: 10 mcg/min, 6 mls/hr Documented by: WILLIAM Heparin Sodium/Dextrose (Heparin 25,000 Units In D5w 500 Ml) 25,000 units in 500 mls @ 20 mls/hr IV TITRATE CIARA Last Admin: 02/26/21 22:46 Dose: 1,000 units/hr, 20 mls/hr Documented by: WILLIAM Cosigned by: OTONIEL Labs: Laboratory Tests 02/26/21 02/26/21 02/26/21 Range/Units 19:35 19:35 19:35 WBC 10.22 H (4.23-9.07) K/mm3 RBC 5.31 (4.63-6.08) M/mm3 Hgb 15.6 (13.7-17.5) gm/dl Hct 45.5 (40.1-51.0) % MCV 85.7 (79.0-92.2) fl MCH 29.4 (25.7-32.2) pg MCHC 34.3 (32.2-35.5) g/dl RDW Std Deviation 39.5 (35.1-43.9) fL Plt Count 307 (163-337) K/mm3 MPV 9.5 (9.4-12.3) fl Neut % (Auto) 54.0 (34.0-67.9) % Lymph % (Auto) 32.8 (21.8-53.1) % Garfield % (Auto) 8.2 (5.3-12.2) % Eos % (Auto) 4.3 (0.8-7.0) Baso % (Auto) 0.5 (0.1-1.2) % Neut # (Auto) 5.52 H (1.78-5.38) K/mm3 Lymph # (Auto) 3.35 (1.32-3.57) K/mm3 Garfield # (Auto) 0.84 H (0.30-0.82) K/mm3 Eos # (Auto) 0.44 (0.04-0.54) K/mm3 Baso # (Auto) 0.05 (0.01-0.08) K/mm3 Manual Slide Review Normal smear PT 11.1 (9.7-12.0) SECONDS INR 1.04 APTT 26.0 (21.7-31.4) SECONDS D-Dimer, Quantitative (0.19-0.50) mg/L Sodium 136 (136-145) mEq/L Potassium 3.7 (3.5-5.1) mEq/L Chloride 101 (98-107) mEq/L Carbon Dioxide 24 (21-32) mEq/L Anion Gap 14.7 (5-15) BUN 19 H (7-18) mg/dL Creatinine 1.2 (0.7-1.3) mg/dL Est Cr Clr Drug Dosing 78.97 mL/min Estimated GFR (MDRD) > 60 (>60) mL/min BUN/Creatinine Ratio 15.8 (14-18) Glucose 112 H (70-99) mg/dL Calcium 9.1 (8.5-10.1) mg/dL Magnesium 1.9 (1.8-2.4) mg/dL Total Bilirubin 0.5 (0.2-1.0) mg/dL AST 22 (15-37) U/L ALT 44 (16-63) U/L Alkaline Phosphatase 95 (46-116) U/L CK-MB (CK-2) 2.4 (0-3.6) ng/ml Troponin I 0.069 H* (0.00-0.056) ng/mL C-Reactive Protein <0.2 (<1.0) mg/dL NT-Pro-B Natriuret Pep (0-125) pg/mL Total Protein 7.4 (6.4-8.2) g/dl Albumin 4.0 (3.4-5.0) g/dl Globulin 3.4 gm/dL Albumin/Globulin Ratio 1.2 (1-2) Lipase 80 (73-393) U/L 02/26/21 02/26/21 02/26/21 Range/Units 19:35 19:35 21:46 WBC (4.23-9.07) K/mm3 RBC (4.63-6.08) M/mm3 Hgb (13.7-17.5) gm/dl Hct (40.1-51.0) % MCV (79.0-92.2) fl MCH (25.7-32.2) pg MCHC (32.2-35.5) g/dl RDW Std Deviation (35.1-43.9) fL Plt Count (163-337) K/mm3 MPV (9.4-12.3) fl Neut % (Auto) (34.0-67.9) % Lymph % (Auto) (21.8-53.1) % Garfield % (Auto) (5.3-12.2) % Eos % (Auto) (0.8-7.0) Baso % (Auto) (0.1-1.2) % Neut # (Auto) (1.78-5.38) K/mm3 Lymph # (Auto) (1.32-3.57) K/mm3 Garfield # (Auto) (0.30-0.82) K/mm3 Eos # (Auto) (0.04-0.54) K/mm3 Baso # (Auto) (0.01-0.08) K/mm3 Manual Slide Review PT (9.7-12.0) SECONDS INR APTT (21.7-31.4) SECONDS D-Dimer, Quantitative 0.44 (0.19-0.50) mg/L Sodium (136-145) mEq/L Potassium (3.5-5.1) mEq/L Chloride (98-107) mEq/L Carbon Dioxide (21-32) mEq/L Anion Gap (5-15) BUN (7-18) mg/dL Creatinine (0.7-1.3) mg/dL Est Cr Clr Drug Dosing mL/min Estimated GFR (MDRD) (>60) mL/min BUN/Creatinine Ratio (14-18) Glucose (70-99) mg/dL Calcium (8.5-10.1) mg/dL Magnesium (1.8-2.4) mg/dL Total Bilirubin (0.2-1.0) mg/dL AST (15-37) U/L ALT (16-63) U/L Alkaline Phosphatase (46-116) U/L CK-MB (CK-2) 1.9 (0-3.6) ng/ml Troponin I 0.078 H* (0.00-0.056) ng/mL C-Reactive Protein (<1.0) mg/dL NT-Pro-B Natriuret Pep 43 (0-125) pg/mL Total Protein (6.4-8.2) g/dl Albumin (3.4-5.0) g/dl Globulin gm/dL Albumin/Globulin Ratio (1-2) Lipase (73-393) U/L Meds: Medications Generic Name Dose Route Start Last Admin Trade Name Freq PRN Reason Stop Dose Admin Sodium Chloride 1,000 mls @ 125 mls/hr 02/26/21 19:45 02/26/21 19:53 Normal Saline IV 125 mls/hr ASDIRECTED CIARA Administration Nitroglycerin/Dextrose 25 mg in 250 mls @ 6 mls/hr 02/26/21 20:45 02/26/21 22:30 Nitroglycerin 25 Mg/D5w 250 Ml IV 15 mcg/min TITRATE CIARA 9 mls/hr Infusion 10 MCG/MIN Heparin Sodium/Dextrose 25,000 units in 500 mls @ 20 mls/hr 02/26/21 22:45 02/26/21 22:46 Heparin 25,000 Units In D5w 500 Ml IV 1,000 units/hr TITRATE CIARA 20 mls/hr Administration 1,000 UNITS/HR Discontinued Medications Generic Name Dose Route Start Last Admin Trade Name Freq PRN Reason Stop Dose Admin Al Hydroxide/Mg Hydroxide 30 ml 02/26/21 21:47 02/26/21 21:51 Aluminum Hydroxide/Magnesium Hydroxide/Simethicone Susp 30 Ml Cup PO 02/26/21 21:48 30 ml ONETIME ONE Administration Aspirin 324 mg 02/26/21 19:45 02/26/21 19:53 Aspirin 81 Mg Tab.Chew PO 02/26/21 19:46 324 mg ONETIME ONE Administration Al Hydroxide/Mg Hydroxide 30 0 ml 02/26/21 19:46 02/26/21 19:55 ml/ Lidocaine HCl 15 ml PO 02/26/21 19:47 45 ml ONETIME ONE Administration Heparin Sodium (Porcine) 4,000 units 02/26/21 22:34 02/26/21 22:44 Heparin Sodium 5,000 Units/Ml Vial IVPUSH 02/26/21 22:35 4,000 units .BOLUS ONE Administration Hydromorphone HCl 0.5 mg 02/26/21 22:35 Hydromorphone 0.5 Mg/0.5 Ml Syringe IVPUSH 02/26/21 22:36 ONETIME ONE Nitroglycerin/Dextrose 25 mg in 250 mls @ 6 mls/hr 02/26/21 19:45 Nitroglycerin 25 Mg/D5w 250 Ml IV ASDIRECTED CIARA 10 MCG/MIN Metoclopramide HCl 10 mg 02/26/21 22:36 Metoclopramide 10 Mg/2 Ml Sdv IVPUSH 02/26/21 22:37 ONETIME ONE - Radiology Interpretation Free Text/Narrative:: 55-year-old male presents to the ED once again with retrosternal chest pressure discomfort that came on at rest. He has had it twice today. Yesterday he was okay he was seen through the ED the day prior with 3 bouts of chest pain during that day with negative cardiac rule out and normal D-dimer. Chest x-ray was normal as was his ECG. Patient is moderately obese. Consideration for atypical types of chest pain such as hiatal hernia. Cardiac work-up will be instituted. Nitroglycerin at 10 mcg/min IV. 324 mg aspirin chewed. We will also give him a GI cocktail. X-rays of his abdomen and pelvis to be obtained with routine labs including cardiac markers and D-dimer. - Re-Assessments/Exams Free Text/Narrative Re-Assessment/Exam: 02/26/21 20:11 chest x-ray done portable is completely normal as well. Lungs are clear. Cardiac silhouette and mediastinum are normal. No pleural effusion no pneumothorax. X-ray of the abdomen shows positive gas throughout the entire small and large bowel. Slightly increased stool present within the right hemicolon and hepatic flexure. Signs of bowel obstruction or severe constipation. Patient reports his chest pain is currently in the right upper anterior chest versus the retrosternal area at this time rates it as 2 out of 10. 02/26/21 20:28 White count is minimally elevated at 10.22. The differential shows 54% neutrophils in the auto differential. Hemoglobin is 15.6 with hematocrit of 45.5. Platelet count 307. PT is 11.1 with an INR of 1.04. PTT is 26.0 with a D-dimer at 0.44. Sodium 136 with a potassium of 3.7. Chloride 101 with a bicarb of 24. Anion gap is 14.7. BUN is 19 with a creatinine of 1.2. GFR is greater than 60. Glucose 112 with a calcium of 9.1. Magnesium was 1.9 liver function is normal CK-MB is 2.4 with a troponin I of slightly elevated 0.069 which is now 3-1/2 hours since chest pain occurred. C-reactive protein is less than 0.2. BNP is 43 total protein 7.4 with an albumin fraction of 4.0. Troponin done by Dr. Davis 2 days ago was reported to be less than 0.017. Of note the GI cocktail did not help at all relieve his discomfort central chest. Still remains 2 out of 10. 02/26/21 20:37 Patient will have a repeat CK-MB and troponin done at 2145 hrs. 02/26/21 21:55 ECG reveals sinus rhythm at 61/min. There are minimal Q waves present in leads II, III and aVF that were perhaps not present particularly in aVF on ECG #1 done 2 hours ago. Otherwise there are no signs of acute ischemic change with change in baseline. Will await cardiac markers. Patient is asking for some Maalox at this time was given 30 mils of Maalox p.o. 02/26/21 22:57 x-ray has been sent to [facility] per PACS. Second troponin I value came back elevated at 0.078 indicating a slowly evolving myocardial infarction. Shortly after this value came back the patient started to develop significant retrosternal chest pressure discomfort worse than what he has had at all in the last 3 days. He will be given Dilaudid 1 mg IV and Reglan 10 mg IV. Was able to speak to the 1 call nurse at [facility] in [place] and with on-call audit clerks supervisor --[facility]'s audit clerks supervisor and --ED and they have accepted care. The patient will be transferred to that facility per ground ambulance. 02/26/21 22:59 reports that his chest pain is easing up with the Dilaudid at this time. Departure - Departure Time of Disposition: 23:00 Disposition: Home, Self-Care 01 Reason for Transfer *Q: Primary PCI Indicated Condition: Fair Clinical Impression: Non-STEMI (non-ST elevated myocardial infarction) Referrals: Tara Dominguez MD [Primary Care Provider] - Forms: ED Department Discharge Additional Instructions: Transferred to [facility] for cardiology consultation and treatment. Sepsis Event Note (ED) - Evaluation Sepsis Screening Result: No Definite Risk - Focused Exam Vital Signs: Vital Signs Temp Pulse Resp BP Pulse Ox 02/26/21 19:31 36.1 C 61 18 133/83 96 - My Orders Last 24 Hours: My Active Orders 02/26/21 19:31 EKG 12 Lead [EKG Documentation Completion] [RC] ROUTINE 02/26/21 19:45 Sodium Chloride 0.9% [Normal Saline] 1,000 ml IV ASDIRECTED 02/26/21 19:46 Chest 1V Frontal [CR] Stat 02/26/21 19:50 Abdomen 1V Flat [CR] Stat 02/26/21 19:52 URIC ACID, URINE Stat 02/26/21 20:45 Nitroglycerin/D5W [Nitroglycerin 25 MG/D5W 250 ML] 25 mg in 250 ml IV TITRATE 02/26/21 22:45 Heparin Sodium/D5W [Heparin 25,000 Units in D5W 500 ML] 25,000 units in 500 ml IV TITRATE 02/26/21 22:56 CORONAVIRUS COVID-19 NELSY [MOLEC] Stat - Assessment/Plan Last 24 Hours: My Active Orders 02/26/21 19:31 EKG 12 Lead [EKG Documentation Completion] [RC] ROUTINE 02/26/21 19:45 Sodium Chloride 0.9% [Normal Saline] 1,000 ml IV ASDIRECTED 02/26/21 19:46 Chest 1V Frontal [CR] Stat 02/26/21 19:50 Abdomen 1V Flat [CR] Stat 02/26/21 19:52 URIC ACID, URINE Stat 02/26/21 20:45 Nitroglycerin/D5W [Nitroglycerin 25 MG/D5W 250 ML] 25 mg in 250 ml IV TITRATE 02/26/21 22:45 Heparin Sodium/D5W [Heparin 25,000 Units in D5W 500 ML] 25,000 units in 500 ml IV TITRATE 02/26/21 22:56 CORONAVIRUS COVID-19 NELSY [MOLEC] Stat
[2021-02-26] MEDS ORDERED: Alum Hydrox/Mag Hydrox/Simeth 30 ML, Lidocaine 2% 15 ML PO ONE ×2 (19:46)
[2021-02-26] MEDS ORDERED: Aluminum Hydroxide/Magnesium Hydroxide/Simethicone Susp 30 ML Cup PO ONE (21:47)
[2021-02-26] MEDS ORDERED: Heparin Sodium 5,000 Units/ML Vial IVPUSH ONE (22:34)
[2021-02-26] MEDS ORDERED: HYDROmorphone 0.5 MG/0.5 ML Syringe IVPUSH ONE (22:35)
[2021-02-26] MEDS ORDERED: Metoclopramide 10 MG/2 ML SDV IVPUSH ONE (22:36)
[2021-02-26] MEDS ORDERED: Heparin Sodium/D5W 25,000 UNITS/500 ML BAG IV SCH (22:45)
--- NOTE | 2021-02-27 00:23 | EDM.PDOC ---
ED HPI GENERAL MEDICAL PROBLEM - General Chief Complaint: Chest Pain Stated Complaint: CHEST PAINS Time Seen by Provider: 02/26/21 19:36 Source of Information: Reports: Patient History Limitations: Reports: No Limitations - History of Present Illness INITIAL COMMENTS - FREE TEXT/NARRATIVE: 55-year-old male presents to the ED for evaluation of development of persistent substernal chest pain that seem to radiate into both shoulders and made both hands and arms numb and tingly. He has had chest pains off and on for the last 3 days. Was checked out in the emergency room by Dr. Davis 2 days ago with a very thorough work-up with no positive findings. Patient states he was fine yesterday but this afternoon had mild retrosternal chest discomfort at rest. first attack was about 5-10 min . Second bout of chest pain started about 1/2 later and lasted a good 10 minutes. This past afternoon at approximately 1600 hrs. he developed sternal chest discomfort that lasted a good 10 minutes. At about 1800 hrs. he developed significant retrosternal chest pressure discomfort which he rated as 8-9 out of 10 that still remains about a 2 out of 10 at rest in the ED. This chest pressure discomfort did not radiate up into his neck or through to his back but felt it in his shoulders and numbness and tingling in his arms which may or may not have been hyperventilation. Denies cough, sputum production and fever or chills. No odynophagia. He states he was not working hard at all when the pain came on today. He still rates the pain as a 2 out of 10 lying in bed[address] It on the way into town it was 4 out of 10. Patient is a smoker approximately 10 to 15 cigarettes daily. He does have hypertension. He has GERD but it has been well controlled with Pepcid 20 mg daily. He felt when the pain was present that burping and belching perhaps helped a little bit. He thought though that he was probably swallowing some air. He currently has no abdominal pain and no diarrhea. Onset: Today, Sudden Onset Date: 02/26/21 Onset Time: 16:00 (Worse bout of chest pressure discomfort retrosternally today was around 1600 hrs. He had one milder event this morning that lasted about 5 to 10 minutes around 2100 hrs.) Duration: Hour(s):, Constant, Improving Location: Reports: Chest (Central retrosternal chest discomfort with no radiation to the neck jaw or through to his back. Associated numbness and tingling in both upper extremities) Quality: Reports: Ache, Pressure Severity: Moderate (Worst pain was 8-9 out of 10. Currently it is 2 out of 10) Improves with: Reports: None (Certainly not made worse by walking or activity.) Worsens with: Reports: None, Other Context: Denies: Activity, Exercise, Lifting, Sick Contact, Trauma, Other Associated Symptoms: Reports: No Other Symptoms (See history of present illness), Chest Pain. 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 (see below) (Has taken no medication for the discomfort.) Mid-Sternal Chest Pain Score (Numeric/FACES): 9 - Related Data Allergies Allergy/AdvReac Type Severity Reaction Status Date / Time No Known Allergies Allergy Verified 02/26/21 19:30 Home Meds: Home Meds Lisinopril 40 mg PO DAILY 12/01/14 [History] amLODIPine Besylate [Amlodipine Besylate] 10 mg PO DAILY 12/01/14 [History] Hydrochlorothiazide 25 mg PO DAILY 02/17/17 [History] Famotidine 20 mg PO DAILY 02/24/21 [History] Metoprolol Succinate 25 mg PO DAILY 02/24/21 [History] Rosuvastatin [Crestor] 10 mg PO DAILY 02/24/21 [History] allopurinoL [Zyloprim] 100 mg PO DAILY 02/24/21 [History] cloNIDine [Catapres] 0.1 mg PO DAILY 02/24/21 [History] Past Medical History Cardiovascular History: Reports: Hypertension Respiratory History: Reports: Sleep Apnea Other Respiratory History: Patient uses CPAP. Gastrointestinal History: Reports: GERD Musculoskeletal History: Reports: Arthritis, Back Pain, Chronic, Gout Endocrine/Metabolic History: Reports: Obesity/BMI 30+ - Infectious Disease History Infectious Disease History: Reports: Chicken Pox - Past Surgical History HEENT Surgical History: Reports: Other (See Below) Other HEENT Surgeries/Procedures: Patient had cyst removed from upper right forehead. GI Surgical History: Reports: Appendectomy, Colonoscopy, Hernia, Abdominal Other Musculoskeletal Surgeries/Procedures:: Degenerative arthritis of lower back, spinal stenosis. Social & Family History - Family History Cardiac: Reports: Heart Murmur, Hypertension, [place] Endocrine/Metabolic: Reports: Diabetes, type II - Tobacco Use Tobacco Use Status *Q: Unknown Ever Used Tobacco - Caffeine Use Caffeine Use: Reports: Coffee - Living Situation & Occupation Living situation: Reports: Occupation: Employed ED ROS GENERAL - Review of Systems Review Of Systems: See Below Constitutional: Denies: Fever, Chills, Malaise, Weakness, Fatigue, Decreased Appetite, Weight Loss HEENT: Reports: No Symptoms Respiratory: Reports: Shortness of Breath. Denies: Wheezing, Pleuritic Chest Pain, Cough, Sputum, Hemoptysis Cardiovascular: Reports: Chest Pain, Blood Pressure Problem, Dyspnea on Exertion, Edema (Occasional edema with a heat at the ankles). Denies: Claudication, Lightheadedness, Orthopnea (See history of present illness), Palpitations (On occasion) Endocrine: Reports: Fatigue GI/Abdominal: Reports: No Symptoms : Reports: Frequency, Other (Trigger usually x2) Musculoskeletal: Reports: Back Pain (Vaginal low back pain), Joint Pain (Occasional knee and neck pain) Skin: Reports: No Symptoms Neurological: Reports: No Symptoms Psychiatric: Reports: No Symptoms Hematologic/Lymphatic: Reports: No Symptoms Immunologic: Reports: No Symptoms ED EXAM, GENERAL - Physical Exam Exam: See Below Free Text/Narrative:: 55-year-old male presents to the ED for evaluation of development of persistent substernal chest pain that seem to radiate into both shoulders and made both hands and arms numb and tingly. He has had chest pains off and on for the last 3 days. Was checked out in the emergency room by Dr. Davis 2 days ago with a very thorough work-up with no positive findings. Patient states he was fine yesterday but this afternoon had mild retrosternal chest discomfort at rest. first attack was about 5-10 min . Second bout of chest pain started about 1/2 later and lasted a good 10 minutes. This past afternoon at approximately 1600 hrs. he developed sternal chest discomfort that lasted a good 10 minutes. At about 1800 hrs. he developed significant retrosternal chest pressure discomfort which he rated as 8-9 out of 10 that still remains about a 2 out of 10 at rest in the ED. This chest pressure discomfort did not radiate up into his neck or through to his back but felt it in his shoulders and numbness and tingling in his arms which may or may not have been hyperventilation. Denies cough, sputum production and fever or chills. No odynophagia. He states he was not working hard at all when the pain came on today. He still rates the pain as a 2 out of 10 lying in bed. It on the way into town it was 4 out of 10. Patient is a smoker approximately 10 to 15 cigarettes daily. He does have hypertension. He has GERD but it has been well controlled with Pepcid 20 mg daily. He felt when the pain was present that burping and belching perhaps helped a little bit. He thought though that he was probably swallowing some air. He currently has no abdominal pain and no diarrhea. Exam Limited By: No Limitations General Appearance: Alert, WD/WN, No Apparent Distress, Other (Temperature is 36.1 degrees. Heart rate 61 and sinus. Respiratory is 18. BP 1 3383. Pulse ox 96% room air) Neck: Normal Inspection, Supple, Non-Tender, Full Range of Motion. No: Carotid Bruit, Lymphadenopathy (L), Lymphadenopathy (R) Respiratory/Chest: No Respiratory Distress, Lungs Clear, Normal Breath Sounds, No Accessory Muscle Use, Other Cardiovascular: Normal Peripheral Pulses (No chest pain on examination), Regular Rate, Rhythm, No Edema, No Gallop, No Murmur, No Rub Peripheral Pulses: 2+: Posterior Tibial (L), Posterior Tibial (R), Dorsalis Pedis (L), Dorsalis Pedis (R), 3+: Carotid (L), Carotid (R) GI/Abdominal: Soft, Non-Tender, No Organomegaly, No Mass, Pelvis Stable, Abnormal Bowel Sounds (Bowel sounds are diffusely hyperactive in all upper q uadrants and in fact are heard up in his lower retrosternal chest.), Other (Moderate obesity. Negative Chand sign no pain on firm palpation in the epigastrium.) Back Exam: Normal Inspection, Full Range of Motion. No: CVA Tenderness (L), CVA Tenderness (R) Extremities: Normal Inspection, Normal Range of Motion, Non-Tender, No Pedal Edema Neurological: Alert, Oriented, CN II-XII Intact, Normal Cognition, Normal Gait Psychiatric: Normal Affect, Normal Mood Skin Exam: Warm, Dry, Intact, Normal Color, No Rash #3 Interpretation EKG Date: 02/27/21 Time: 23:17 Rhythm: NSR Rate (Beats/Min): 62 [place]: Normal P-Wave: Enlarged (Consider left atrial hypertrophy) QRS: Other (Minimal Q waves leads II, III and aVF insignificant at this time) ST-T: Other (Nonspecific T wave flattening aVL. Mild diffuse early repolarization pattern) QT: Normal EKG Interpretation Comments: Borderline ECG #2 Interpretation EKG Date: 02/27/21 Time: 21:43 Rhythm: NSR Rate (Beats/Min): 61 [place]: Normal P-Wave: Enlarged (Consider left atrial hypertrophy) QRS: Other (There are minimal Q waves appearing in leads III and aVF that perhaps were not as noticeable as on ECG #1) ST-T: Other (Nonspecific T wave flattening aVL) QT: Normal EKG Interpretation Comments: Borderline ECG Course - Vital Signs Last Recorded V/S: Last Vital Signs Temp 36.1 C 02/26/21 19:31 Pulse 61 02/26/21 19:31 Resp 18 02/26/21 19:31 BP 133/83 02/26/21 19:31 Pulse Ox 96 02/26/21 19:31 - Orders/Labs/Meds Orders: Active Orders 24 hr Category Date Time Status Abdomen 1V Flat [CR] Stat Exams 02/26/21 19:50 Taken Chest 1V Frontal [CR] Stat Exams 02/26/21 19:46 Taken Labs: Laboratory Tests 02/26/21 02/26/21 02/26/21 Range/Units 19:35 19:35 19:35 WBC 10.22 H (4.23-9.07) K/mm3 RBC 5.31 (4.63-6.08) M/mm3 Hgb 15.6 (13.7-17.5) gm/dl Hct 45.5 (40.1-51.0) % MCV 85.7 (79.0-92.2) fl MCH 29.4 (25.7-32.2) pg MCHC 34.3 (32.2-35.5) g/dl RDW Std Deviation 39.5 (35.1-43.9) fL Plt Count 307 (163-337) K/mm3 MPV 9.5 (9.4-12.3) fl Neut % (Auto) 54.0 (34.0-67.9) % Lymph % (Auto) 32.8 (21.8-53.1) % [place] % (Auto) 8.2 (5.3-12.2) % Eos % (Auto) 4.3 (0.8-7.0) Baso % (Auto) 0.5 (0.1-1.2) % Neut # (Auto) 5.52 H (1.78-5.38) K/mm3 Lymph # (Auto) 3.35 (1.32-3.57) K/mm3 [place] # (Auto) 0.84 H (0.30-0.82) K/mm3 Eos # (Auto) 0.44 (0.04-0.54) K/mm3 Baso # (Auto) 0.05 (0.01-0.08) K/mm3 Manual Slide Review Normal smear PT 11.1 (9.7-12.0) SECONDS INR 1.04 APTT 26.0 (21.7-31.4) SECONDS D-Dimer, Quantitative (0.19-0.50) mg/L Sodium 136 (136-145) mEq/L Potassium 3.7 (3.5-5.1) mEq/L Chloride 101 (98-107) mEq/L Carbon Dioxide 24 (21-32) mEq/L Anion Gap 14.7 (5-15) BUN 19 H (7-18) mg/dL Creatinine 1.2 (0.7-1.3) mg/dL Est Cr Clr Drug Dosing 78.97 mL/min Estimated GFR (MDRD) > 60 (>60) mL/min BUN/Creatinine Ratio 15.8 (14-18) Glucose 112 H (70-99) mg/dL Calcium 9.1 (8.5-10.1) mg/dL Magnesium 1.9 (1.8-2.4) mg/dL Total Bilirubin 0.5 (0.2-1.0) mg/dL AST 22 (15-37) U/L ALT 44 (16-63) U/L Alkaline Phosphatase 95 (46-116) U/L CK-MB (CK-2) 2.4 (0-3.6) ng/ml Troponin I 0.069 H* (0.00-0.056) ng/mL C-Reactive Protein <0.2 (<1.0) mg/dL NT-Pro-B Natriuret Pep (0-125) pg/mL Total Protein 7.4 (6.4-8.2) g/dl Albumin 4.0 (3.4-5.0) g/dl Globulin 3.4 gm/dL Albumin/Globulin Ratio 1.2 (1-2) Lipase 80 (73-393) U/L SARS-CoV-2 RNA (NELSY) (NEGATIVE) 02/26/21 02/26/21 02/26/21 Range/Units 19:35 19:35 21:46 WBC (4.23-9.07) K/mm3 RBC (4.63-6.08) M/mm3 Hgb (13.7-17.5) gm/dl Hct (40.1-51.0) % MCV (79.0-92.2) fl MCH (25.7-32.2) pg MCHC (32.2-35.5) g/dl RDW Std Deviation (35.1-43.9) fL Plt Count (163-337) K/mm3 MPV (9.4-12.3) fl Neut % (Auto) (34.0-67.9) % Lymph % (Auto) (21.8-53.1) % [place] % (Auto) (5.3-12.2) % Eos % (Auto) (0.8-7.0) Baso % (Auto) (0.1-1.2) % Neut # (Auto) (1.78-5.38) K/mm3 Lymph # (Auto) (1.32-3.57) K/mm3 [place] # (Auto) (0.30-0.82) K/mm3 Eos # (Auto) (0.04-0.54) K/mm3 Baso # (Auto) (0.01-0.08) K/mm3 Manual Slide Review PT (9.7-12.0) SECONDS INR APTT (21.7-31.4) SECONDS D-Dimer, Quantitative 0.44 (0.19-0.50) mg/L Sodium (136-145) mEq/L Potassium (3.5-5.1) mEq/L Chloride (98-107) mEq/L Carbon Dioxide (21-32) mEq/L Anion Gap (5-15) BUN (7-18) mg/dL Creatinine (0.7-1.3) mg/dL Est Cr Clr Drug Dosing mL/min Estimated GFR (MDRD) (>60) mL/min BUN/Creatinine Ratio (14-18) Glucose (70-99) mg/dL Calcium (8.5-10.1) mg/dL Magnesium (1.8-2.4) mg/dL Total Bilirubin (0.2-1.0) mg/dL AST (15-37) U/L ALT (16-63) U/L Alkaline Phosphatase (46-116) U/L CK-MB (CK-2) 1.9 (0-3.6) ng/ml Troponin I 0.078 H* (0.00-0.056) ng/mL C-Reactive Protein (<1.0) mg/dL NT-Pro-B Natriuret Pep 43 (0-125) pg/mL Total Protein (6.4-8.2) g/dl Albumin (3.4-5.0) g/dl Globulin gm/dL Albumin/Globulin Ratio (1-2) Lipase (73-393) U/L SARS-CoV-2 RNA (NELSY) (NEGATIVE) 02/26/21 Range/Units 22:55 WBC (4.23-9.07) K/mm3 RBC (4.63-6.08) M/mm3 Hgb (13.7-17.5) gm/dl Hct (40.1-51.0) % MCV (79.0-92.2) fl MCH (25.7-32.2) pg MCHC (32.2-35.5) g/dl RDW Std Deviation (35.1-43.9) fL Plt Count (163-337) K/mm3 MPV (9.4-12.3) fl Neut % (Auto) (34.0-67.9) % Lymph % (Auto) (21.8-53.1) % [place] % (Auto) (5.3-12.2) % Eos % (Auto) (0.8-7.0) Baso % (Auto) (0.1-1.2) % Neut # (Auto) (1.78-5.38) K/mm3 Lymph # (Auto) (1.32-3.57) K/mm3 [place] # (Auto) (0.30-0.82) K/mm3 Eos # (Auto) (0.04-0.54) K/mm3 Baso # (Auto) (0.01-0.08) K/mm3 Manual Slide Review PT (9.7-12.0) SECONDS INR APTT (21.7-31.4) SECONDS D-Dimer, Quantitative (0.19-0.50) mg/L Sodium (136-145) mEq/L Potassium (3.5-5.1) mEq/L Chloride (98-107) mEq/L Carbon Dioxide (21-32) mEq/L Anion Gap (5-15) BUN (7-18) mg/dL Creatinine (0.7-1.3) mg/dL Est Cr Clr Drug Dosing mL/min Estimated GFR (MDRD) (>60) mL/min BUN/Creatinine Ratio (14-18) Glucose (70-99) mg/dL Calcium (8.5-10.1) mg/dL Magnesium (1.8-2.4) mg/dL Total Bilirubin (0.2-1.0) mg/dL AST (15-37) U/L ALT (16-63) U/L Alkaline Phosphatase (46-116) U/L CK-MB (CK-2) (0-3.6) ng/ml Troponin I (0.00-0.056) ng/mL C-Reactive Protein (<1.0) mg/dL NT-Pro-B Natriuret Pep (0-125) pg/mL Total Protein (6.4-8.2) g/dl Albumin (3.4-5.0) g/dl Globulin gm/dL Albumin/Globulin Ratio (1-2) Lipase (73-393) U/L SARS-CoV-2 RNA (NELSY) Negative (NEGATIVE) Meds: Medications Discontinued Medications Generic Name Dose Route Start Last Admin Trade Name Freq PRN Reason Stop Dose Admin Al Hydroxide/Mg Hydroxide 30 ml 02/26/21 21:47 02/26/21 21:51 Aluminum Hydroxide/Magnesium Hydroxide/Simethicone Susp 30 Ml Cup PO 02/26/21 21:48 30 ml ONETIME ONE Administration Aspirin 324 mg 02/26/21 19:45 02/26/21 19:53 Aspirin 81 Mg Tab.Chew PO 02/26/21 19:46 324 mg ONETIME ONE Administration Al Hydroxide/Mg Hydroxide 30 0 ml 02/26/21 19:46 02/26/21 19:55 ml/ Lidocaine HCl 15 ml PO 02/26/21 19:47 45 ml ONETIME ONE Administration Heparin Sodium (Porcine) 4,000 units 02/26/21 22:34 02/26/21 22:44 Heparin Sodium 5,000 Units/Ml Vial IVPUSH 02/26/21 22:35 4,000 units .BOLUS ONE Administration Hydromorphone HCl 0.5 mg 02/26/21 22:35 02/26/21 23:00 Hydromorphone 0.5 Mg/0.5 Ml Syringe IVPUSH 02/26/21 22:36 0.5 mg ONETIME ONE Administration Sodium Chloride 1,000 mls @ 125 mls/hr 02/26/21 19:45 02/26/21 19:53 Normal Saline IV 125 mls/hr ASDIRECTED CIARA Administration Nitroglycerin/Dextrose 25 mg in 250 mls @ 6 mls/hr 02/26/21 19:45 Nitroglycerin 25 Mg/D5w 250 Ml IV ASDIRECTED CIARA 10 MCG/MIN Nitroglycerin/Dextrose 25 mg in 250 mls @ 6 mls/hr 02/26/21 20:45 02/26/21 22:30 Nitroglycerin 25 Mg/D5w 250 Ml IV 15 mcg/min TITRATE CIARA 9 mls/hr Infusion 10 MCG/MIN Heparin Sodium/Dextrose 25,000 units in 500 mls @ 20 mls/hr 02/26/21 22:45 02/26/21 22:46 Heparin 25,000 Units In D5w 500 Ml IV 1,000 units/hr TITRATE CIARA 20 mls/hr Administration 1,000 UNITS/HR Metoclopramide HCl 10 mg 02/26/21 22:36 02/26/21 23:01 Metoclopramide 10 Mg/2 Ml Sdv IVPUSH 02/26/21 22:37 10 mg ONETIME ONE Administration Departure - Departure Time of Disposition: 23:35 Disposition: Home, Self-Care 01 Condition: Fair Clinical Impression: Non-STEMI (non-ST elevated myocardial infarction) Referrals: Tara Dominguez MD [Primary Care Provider] - Forms: ED Department Discharge Additional Instructions: Transferred to [facility] for cardiology consultation and treatment of non-STEMI with worsening chest pain. Sepsis Event Note (ED) - Evaluation Sepsis Screening Result: No Definite Risk - Focused Exam Vital Signs: Vital Signs Temp Pulse Resp BP Pulse Ox 02/26/21 19:31 36.1 C 61 18 133/83 96 - My Orders Last 24 Hours: My Active Orders 02/26/21 19:46 Chest 1V Frontal [CR] Stat 02/26/21 19:50 Abdomen 1V Flat [CR] Stat - Assessment/Plan Last 24 Hours: My Active Orders 02/26/21 19:46 Chest 1V Frontal [CR] Stat 02/26/21 19:50 Abdomen 1V Flat [CR] Stat
--- NOTE | 2021-02-27 11:50 | CR ---
Abdomen: Portable supine view of the abdomen was obtained. Comparison: No prior abdominal x-rays available, previous CT abdomen and pelvis study of 02/17/17 is available. Bowel gas pattern is normal. Calcification is noted within the left side of the pelvis compatible with phlebolith. No other abnormal calcifications are seen. Bony structures show slight degenerative change within the spine. Impression: 1. Nothing acute is seen on supine abdominal x-ray. 2. Other findings believed to be incidental as noted above. Diagnostic code #2
--- NOTE | 2021-02-27 11:57 | CR ---
Chest: Portable view of the chest was obtained. Comparison: Prior chest x-ray of 02/24/21. Minimal discoid atelectasis is seen within the left lung base. Lungs otherwise are clear. Heart size and mediastinum are normal. Prior right shoulder surgery is noted. Mild degenerative change is seen within the spine. Impression: 1. Findings believed to be incidental as noted above. 2. Nothing acute is appreciated on portable chest x-ray. Diagnostic code #2
== END 2021-02-26 23:35 ==
LOC: JD.ED 19:23
DX: I21.4 Non-ST elevation (NSTEMI) myocardial infarction (principal); I10 Essential (primary) hypertension; K21.9 Gastro-esophageal reflux disease without esophagitis; M10.9 Gout, unspecified; E66.9 Obesity, unspecified; Z68.37 Body mass index [BMI] 37.0-37.9, adult; Z79.899 Other long term (current) drug therapy; Z20.822 Contact with and (suspected) exposure to COVID-19
CPT/HCPCS: 36415; 71045; 74018; 80053; 82553; 83690; 83735; 83880; 84484; 85025; 85379; 85610; 85730; 86140; 87635; 93005; 96365; 96366; 96368; 96375; 99285; A9270; J1170; J1644; J2765; J3490; J7030; 93010; U0002

== ENCOUNTER 2022-10-21 02:55 | Emergency (ER) | payer OTHER ==
[2022-10-21] MEDS ORDERED: Aspirin 81 MG Tab.Chew PO ONE (03:08)
[2022-10-21 07:16] VITALS: BP 157/102; PULSE 63
== END 2022-10-21 07:13 | disposition home or self-care (01) ==
LOC: JD.ED 02:55
DX: R07.89 Other chest pain (principal); I48.91 Unspecified atrial fibrillation; E78.00 Pure hypercholesterolemia, unspecified; I10 Essential (primary) hypertension; I25.2 Old myocardial infarction; K21.9 Gastro-esophageal reflux disease without esophagitis; M10.9 Gout, unspecified; E66.9 Obesity, unspecified; Z68.41 Body mass index [BMI] 40.0-44.9, adult; Z79.899 Other long term (current) drug therapy
CPT/HCPCS: 36415; 71045; 80053; 84484; 85025; 85379; 85610; 93005; 99285; A9270; 93010; 99283

== ENCOUNTER 2023-05-27 13:38 | Emergency (ER) | payer OTHER ==
[2023-05-27] MEDS ORDERED: Lidocaine 1% 10 ML MDV INJECT ONE (13:51)
[2023-05-27 17:38] VITALS: BP 134/70; PULSE 70
[2023-05-31 19:41] LABS: DIPTHERIA ANTITOXOID AB 0.79 IU/mL (<0.10); TETANUS ANTITOXOID IGG AB 1.65 IU/mL (<0.10)
== END 2023-05-27 14:50 | disposition home or self-care (01) ==
LOC: JD.ED 13:38
DX: S61.226A Laceration with foreign body of right little finger without damage to nail, initial encounter (principal); E78.00 Pure hypercholesterolemia, unspecified; I10 Essential (primary) hypertension; G47.30 Sleep apnea, unspecified; I25.2 Old myocardial infarction; K21.9 Gastro-esophageal reflux disease without esophagitis; E66.9 Obesity, unspecified; Z68.30 Body mass index [BMI] 30.0-30.9, adult; Z79.899 Other long term (current) drug therapy; W26.8XXA Contact with other sharp object(s), not elsewhere classified, initial encounter
CPT/HCPCS: 12002; 36415; 86317; 99282; 99283; J3490

== ENCOUNTER 2024-08-31 10:45 | Emergency (ER) | payer OTHER ==
[2024-08-31] MEDS: Proparacaine 0.5% Ophth Soln 15 ML Bottle EYELF ONE (11:14)
[2024-08-31] MEDS: Fluorescein 1 MG Ophth Strip EYELF ONE (11:14)
[2024-08-31 11:51] VITALS: BP 150/94; PULSE 76
== END 2024-08-31 11:47 | disposition home or self-care (01) ==
LOC: JD.ED 10:45
DX: S05.02XA Injury of conjunctiva and corneal abrasion without foreign body, left eye, initial encounter (principal); I10 Essential (primary) hypertension; E78.00 Pure hypercholesterolemia, unspecified; E66.9 Obesity, unspecified; Z79.899 Other long term (current) drug therapy; Z90.49 Acquired absence of other specified parts of digestive tract; Z68.41 Body mass index [BMI] 40.0-44.9, adult; X58.XXXA Exposure to other specified factors, initial encounter
CPT/HCPCS: 99283; J3490

== ENCOUNTER 2024-12-05 10:27 | Emergency (ER) | payer OTHER ==
[2024-12-05] MEDS: Ketorolac 30 MG/ML SDV IM ONE (11:25)
[2024-12-05] MEDS: Orphenadrine 60 MG/2 ML Inj IM ONE (11:25)
[2024-12-05 11:45] VITALS: BP 149/85; PULSE 80
== END 2024-12-05 11:44 | disposition home or self-care (01) ==
LOC: JD.ED 10:27
DX: M54.50 Low back pain, unspecified (principal); I10 Essential (primary) hypertension; E78.00 Pure hypercholesterolemia, unspecified; E66.9 Obesity, unspecified; Z68.42 Body mass index [BMI] 45.0-49.9, adult; K21.9 Gastro-esophageal reflux disease without esophagitis; Z90.49 Acquired absence of other specified parts of digestive tract; Z79.899 Other long term (current) drug therapy
CPT/HCPCS: 96372; 99283; J1885; J2360